=== PATIENT | male | born 1965 | race Hispanic/Latino ===

== ENCOUNTER 2018-04-07 10:33 | Emergency (ER) | payer MEDICAID, MEDICARE ==
[2018-04-07 10:42] VITALS: RESP 18; TEMP 97.5
--- NOTE | 2018-04-07 10:58 | ED PDOC ---
Arrival/HPI - General Chief Complaint: Weakness/Neurological Deficit Time Seen by Provider: 04/07/18 10:44 Historian: Patient - History of Present Illness Narrative History of Present Illness (Text): 04/07/18 10:55 A 52 year old male, with no significant past medical history, presents to the emergency department for further evaluation. Acutely yesterday, at around 5 pm the patient became dizzy and weak causing him to fall. Patient did not sustain any injury. He reports that since then, he has been experiencing trouble walking, right arm weakness, slurred speech, and facial droop. The patient is a non- smoker/ non- drinker. He denies any medication use or allergies, fevers, chills, headache, palpitations, chest pain, shortness of breath, dyspnea on exertion, cough, abdominal pain, nausea, vomiting, diarrhea, back pain, neck pain, urinary/bowel changes, or any other complaint. Time/Duration: Other (Yesterday) Symptom Onset: Sudden Symptom Course: Unchanged Activities at Onset: Rest, Light Context: Home Associated Symptoms (Text): 04/07/18 11:44 acute onset yesterday at approximately 5 PM of right upper extremity weakness difficulty walking slurred speech and a right facial droop. Patient is not a TPA candidate as his symptoms have been for approximately 19 hours. Past Medical History - Provider Review Nursing Documentation Reviewed: Yes - Psychiatric Hx Substance Use: No Family/Social History - Physician Review Nursing Documentation Reviewed: Yes Family/Social History: No Known Family HX Smoking Status: Never Smoked Hx Alcohol Use: No Hx Substance Use: No Allergies/Home Meds Allergies/Adverse Reactions: Allergies No Known Allergies Allergy (Verified 04/07/18 10:41) Home Medications: Home Meds Medication Instructions Recorded Confirmed RX: No Known Home Med 04/07/18 04/07/18 Review of Systems - Physician Review All systems were reviewed & negative as marked: Yes - Review of Systems Constitutional: absent: Fevers Respiratory: absent: SOB, Cough Cardiovascular: absent: Chest Pain, Palpitations, HEAD Gastrointestinal: absent: Abdominal Pain, Stool Changes, Diarrhea, Nausea, Vomiting Genitourinary Male: absent: Urinary Output Changes Musculoskeletal: absent: Back Pain, Neck Pain Neurological: Dizziness, Gait Changes, Speech Changes, Facial Droop Physical Exam Vital Signs Reviewed: Yes Vital Signs Temp Pulse Resp BP Pulse Ox 04/07/18 10:36 97.5 F L 85 18 206/104 H 97 Temperature: Hypothermic Blood Pressure: Hypertensive Pulse: Regular Respiratory Rate: Normal Appearance: Positive for: Well-Appearing, Non-Toxic, Comfortable Pain Distress: None Mental Status: Positive for: Alert and Oriented X 3 Finger Stick Blood Glucose: 331 - Systems Exam Head: Present: Atraumatic, Other (Right facial droop) Pupils: Present: PERRL Extroacular Muscles: Present: EOMI Conjunctiva: Present: Normal Mouth: Present: Moist Mucous Membranes Neck: Present: Normal Range of Motion Respiratory/Chest: Present: Clear to Auscultation, Good Air Exchange. No: Respiratory Distress, Accessory Muscle Use Cardiovascular: Present: Regular Rate and Rhythm, Normal S1, S2. No: Murmurs Abdomen: No: Tenderness, Distention, Peritoneal Signs Back: Present: Normal Inspection Upper Extremity: Present: Other (right upper extremity weakness. ). No: Cyanosis, Edema Lower Extremity: Present: Other (right lower extremity weakness. ). No: Edema Neurological: Present: GCS=15, CN II-XII Intact, Other (Right facial droop. ). No: Speech Normal (slurred speech) Skin: Present: Warm, Dry, Normal Color. No: Rashes Psychiatric: Present: Alert, Oriented x 3, Normal Insight, Normal Concentration Medical Decision Making ED Course and Treatment: 04/07/18 11:04 Impression: A 52 year old male presents to the emergency department for further evaluation after experiencing facial droop, difficulty walking, and right upper/ lower extremity weakness. Plan: -- Head CT -- EKG -- Chest X-ray -- Urinalysis -- Reassess and disposition Prior Visits: Notes and results from previous visits were reviewed. Progress Notes: Chest X-ray Signed By: Ventura Barros MD Date Signed: 04/07/18 1128 IMPRESSION: No active disease. PROCEDURE: CT HEAD WITHOUT CONTRAST Signed By: Ventura Barros MD Date Signed: 04/07/18 1114 IMPRESSION: There is a 9 mm hypodensity in the left thalamus that is most consistent with a subacute or chronic infarct. Acute infarct is possible and clinical correlation is suggested. There is a chronic white matter infarct in the right periventricular white matter adjacent to the frontal horns. 04/07/18 11:42 EKG shows normal sinus rhythm rate approximately [address] or T-wave changes. - Lab Interpretations I have reviewed the lab results: Yes - EKG Interpretation Interpreted by ED Physician: Yes Type: 12 lead EKG NIHSS Scale ([place]) Time Performed: 10:50 - How Severe is the Stoke Baseline Level of Consciousness: 0=Alert LOC to Questions: 0=Both comments correct LOC to commands: 0=Obeys both correctly Best Gaze: 0=Normal Visual: 0=No visual loss Facial: 1=Minor asymmetry Motor Arm - Left: 0=No drift Motor Arm - Right: 1=Drift noted before 10 sec Motor Leg - Left: 0=No drift Motor Leg - Right: 1=Drift before 5 sec Limb Ataxia: 1=Present Upper or Lower Sensory: 0=Normal Best Language: 0=No aphasia Dysarthia: 1=Mild to moderate slurring Extinction & Inattention (Neglect): 0=Normal, no object Score: 5 Risk Level: Mod Stroke Risk - Scribe Statement The provider has reviewed the documentation as recorded by the Scribe Maryan Spivey Provider Scribe Attestation: All medical record entries made by the Scribe were at my direction and personally dictated by me. I have reviewed the chart and agree that the record accurately reflects my personal performance of the history, physical exam, medical decision making, and the department course for this patient. I have also personally directed, reviewed, and agree with the discharge instructions and disposition. Disposition/Present on Arrival - Present on Arrival Any Indicators Present on Arrival: No History of DVT/PE: No History of Uncontrolled Diabetes: No Urinary Catheter: No History of Decub. Ulcer: No History Surgical Site Infection Following: None - Disposition Have Diagnosis and Disposition been Completed?: Yes Diagnosis: Cerebrovascular accident, Hypertension, Hyperglycemia, Diabetes Disposition: HOSPITALIZED Disposition Time: 11:40 Patient Plan: Admission Patient Problems: Current Active Problems Problem Status Onset Cerebrovascular accident Acute Diabetes Acute Hyperglycemia Acute Hypertension Acute Condition: SERIOUS
[2018-04-07 11:13] LABS: BASO # 0.02 K/mm3 (0.0-2.0); BASO % 0.3 % (0.0-3.0); EOS # 0.2 (0.0-0.7); GRAN # 4.74 (1.4-6.5); GRAN % 61.8 % (50.0-68.0); HEMOGLOBIN 15.3 g/dL (14.0-18.0); LYMPH # 2.3 (1.2-3.4); LYMPH % 30.2 % (22.0-35.0); MEAN CELL VOLUME 89.7 fl (80.0-105.0); MEAN CORPUSCULAR HEMOGLOBIN 30.4 pg (25.0-35.0); MEAN CORPUSCULAR HGB CONC 33.9 g/dl (31.0-37.0); MEAN PLATELET VOLUME 9.7 fl (7.0-11.0); MONO # 0.4 (0.1-0.6); MONO % 5.7 % (1.0-6.0); RBC 5.03 10^6/uL (3.5-6.1); RED CELL DISTRIBUTION WIDTH 12.3 % (11.5-14.5); WHITE BLOOD COUNT 7.7 10^3/uL (4.5-11.0)
--- NOTE | 2018-04-07 11:18 | CT ---
Date of service: 04/07/2018 PROCEDURE: CT HEAD WITHOUT CONTRAST. HISTORY: cva COMPARISON: None available. TECHNIQUE: Axial computed tomography images were obtained through the head/brain without intravenous contrast. Radiation dose: Total exam DLP = 907.35 mGy-cm. This CT exam was performed using one or more of the following dose reduction techniques: Automated exposure control, adjustment of the mA and/or kV according to patient size, and/or use of iterative reconstruction technique. FINDINGS: HEMORRHAGE: No intracranial hemorrhage. BRAIN: No mass effect or edema. There is a 9 mm hypodensity in the left thalamus that is most consistent with a subacute or chronic infarct. Acute infarct is possible and clinical correlation is suggested. This finding is seen on image 28 of series 4. There is a chronic white matter infarct in the right periventricular white matter adjacent to the frontal horns. VENTRICLES: Unremarkable. No hydrocephalus. CALVARIUM: Unremarkable. PARANASAL SINUSES: Unremarkable as visualized. No significant inflammatory changes. MASTOID AIR CELLS: Unremarkable as visualized. No inflammatory changes. OTHER FINDINGS: None. IMPRESSION: There is a 9 mm hypodensity in the left thalamus that is most consistent with a subacute or chronic infarct. Acute infarct is possible and clinical correlation is suggested. There is a chronic white matter infarct in the right periventricular white matter adjacent to the frontal horns.
[2018-04-07 11:24] LABS: INR 0.98; PARTIAL THROMBOPLASTIN TIME 27.4 Seconds (25.1-36.5); PROTHROMBIN TIME 11.3 SECONDS (9.4-12.5)
--- NOTE | 2018-04-07 11:32 | RAD ---
Date of service: 04/07/2018 HISTORY: cva COMPARISON: No prior. FINDINGS: LUNGS: No active pulmonary disease. PLEURA: No significant pleural effusion identified, no pneumothorax apparent. CARDIOVASCULAR: No aortic atherosclerotic calcification present. Normal cardiac size. No pulmonary vascular congestion. OSSEOUS STRUCTURES: No significant abnormalities. VISUALIZED UPPER ABDOMEN: Normal. OTHER FINDINGS: None. IMPRESSION: No active disease.
[2018-04-07 11:36] LABS: ALB/GLOB RATIO 1.3 (1.1-1.8); ALBUMIN 4.5 g/dL (3.0-4.8); ALT/SGPT 31 U/L (7-56); AST/SGOT 17 U/L (17-59); BLOOD UREA NITROGEN 15 mg/dL (7-21); CALCIUM 9.9 mg/dL (8.4-10.5); GFR NON-AFRICAN AMERICAN > 60
[2018-04-07 11:37] LABS: TROPONIN I < 0.01 ng/mL
[2018-04-07] MEDS ORDERED: Metoprolol 1 mg/ml Inj IVP PRN ×2 (12:11→12:19)
[2018-04-07] MEDS ORDERED: Dextrose 50% SYRINGE Inj (50 ml) IV PRN (12:14)
[2018-04-07 12:31] LABS: HDL CHOLESTEROL 41 mg/dL (29-60)
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
[2018-04-07 12:41] LABS: LDL CHOLESTEROL 136 mg/dL (0-129)
[2018-04-07 15:28] VITALS: BP 156/83; PULSE 73; O2SAT 94
[2018-04-07 15:51] VITALS: BMI 28.6
--- NOTE | 2018-04-07 16:02 | CP.PCM.DIS ---
<NaveedPooja - Last Filed: 04/07/18 15:59> Provider - Provider Date of Admission: 04/07/18 11:37 Attending physician: Tonya Macedo MD Primary care physician: NO PRIMARY CARE PROVIDER Consults: 04/07/18 12:15 Physician Consult Routine Comment: Consulting Provider: Mayuri Cheung Consulting Physician: Mayuri Cheung Reason for Consult: thalamic cva Time Spent in preparation of Discharge (in minutes): 45 Hospital Course - Lab Results Lab Results: Most Recent Lab Values WBC 7.7 10^3/uL (4.5-11.0) 04/07/18 10:45 RBC 5.03 10^6/uL (3.5-6.1) 04/07/18 10:45 Hgb 15.3 g/dL (14.0-18.0) 04/07/18 10:45 Hct 45.1 % (42.0-52.0) 04/07/18 10:45 MCV 89.7 fl (80.0-105.0) 04/07/18 10:45 MCH 30.4 pg (25.0-35.0) 04/07/18 10:45 MCHC 33.9 g/dl (31.0-37.0) 04/07/18 10:45 RDW 12.3 % (11.5-14.5) 04/07/18 10:45 Plt Count 245 10^3/uL (120.0-450.0) 04/07/18 10:45 MPV 9.7 fl (7.0-11.0) 04/07/18 10:45 Gran % 61.8 % (50.0-68.0) 04/07/18 10:45 Lymph % (Auto) 30.2 % (22.0-35.0) 04/07/18 10:45 Butts % (Auto) 5.7 % (1.0-6.0) 04/07/18 10:45 Eos % (Auto) 2.0 % (1.5-5.0) 04/07/18 10:45 Baso % (Auto) 0.3 % (0.0-3.0) 04/07/18 10:45 Gran # 4.74 (1.4-6.5) 04/07/18 10:45 Lymph # (Auto) 2.3 (1.2-3.4) 04/07/18 10:45 Butts # (Auto) 0.4 (0.1-0.6) 04/07/18 10:45 Eos # (Auto) 0.2 (0.0-0.7) 04/07/18 10:45 Baso # (Auto) 0.02 K/mm3 (0.0-2.0) 04/07/18 10:45 PT 11.3 SECONDS (9.4-12.5) 04/07/18 10:45 INR 0.98 04/07/18 10:45 APTT 27.4 Seconds (25.1-36.5) 04/07/18 10:45 Sodium 139 mmol/L (132-148) 04/07/18 10:45 Potassium 4.2 mmol/L (3.6-5.0) 04/07/18 10:45 Chloride 104 mmol/L (98-107) 04/07/18 10:45 Carbon Dioxide 24 mmol/L (21-33) 04/07/18 10:45 Anion Gap 15 (10-20) 04/07/18 10:45 BUN 15 mg/dL (7-21) 04/07/18 10:45 Creatinine 0.7 mg/dl (0.8-1.5) L 04/07/18 10:45 Est GFR ( Amer) > 60 04/07/18 10:45 Est GFR (Non-Af Amer) > 60 04/07/18 10:45 Random Glucose 312 mg/dL (70-110) H* 04/07/18 10:45 Calcium 9.9 mg/dL (8.4-10.5) 04/07/18 10:45 Phosphorus 4.0 mg/dL (2.5-4.5) 04/07/18 10:45 Magnesium 1.8 mg/dL (1.7-2.2) 04/07/18 10:45 Total Bilirubin 0.4 mg/dL (0.2-1.3) 04/07/18 10:45 AST 17 U/L (17-59) 04/07/18 10:45 ALT 31 U/L (7-56) 04/07/18 10:45 Alkaline Phosphatase 67 U/L (38-126) 04/07/18 10:45 Lactate Dehydrogenase 268 U/L (333-699) L 04/07/18 10:45 Total Creatine Kinase 40 U/L (35-230) 04/07/18 10:45 Troponin I < 0.01 ng/mL 04/07/18 10:45 Total Protein 7.8 g/dL (5.8-8.3) 04/07/18 10:45 Albumin 4.5 g/dL (3.0-4.8) 04/07/18 10:45 Globulin 3.4 gm/dL 04/07/18 10:45 Albumin/Globulin Ratio 1.3 (1.1-1.8) 04/07/18 10:45 Triglycerides 411 mg/dL (35-160) H 04/07/18 12:10 Cholesterol 243 mg/dL (130-200) H 04/07/18 12:10 LDL Cholesterol Direct 136 mg/dL (0-129) H 04/07/18 12:10 HDL Cholesterol 41 mg/dL (29-60) 04/07/18 12:10 TSH 3rd Generation 1.29 mIU/mL (0.46-4.68) 04/07/18 12:10 - Hospital Course Hospital Course: 52 M with no significant PMHx presented to the [facility] escorted by his spouse with complaints of weakness, dizziness, slurred speech and difficulty ambulating. Patient did admit to falling this morning as well as yesterday, approx 5pm when his symptoms began. He states that he was becoming increasingly weak and dizzy, but denied any trauma to the head. He notes that since that time when he fell, he has been experiencing difficulty with speech (slurred), right sided facial droop, right sided weakness, and paresthesias in his lower extremities. He states that his constellation of symptoms began suddenly and has improved minimally since then, however did note improvement. The patient denied any recent travels, sick contacts or any adverse events before the onset of his symptoms. Patient denied fever, chills, shortness of breath, chest pains, abdominal pains, nausea, vomiting, diarrhea, constipation or dysuria. Patient, while in ED and having passed the swallow evaluation had decided to leave against medical advice. Patient was explained the harms and risks of leaving against medical advice for his condition and the patient, completely competent AAOx3, he and his at bedside conferred understanding of the potentially catastrophic adverse events that may arise from not being properly evaluated and treated for his condition. Patient was offered referrals for a PMD, and a Neurologist. He was also informed that he may return to the ED if he had any symptoms or worsening of his current symptoms. He was also offered to return to [facility] for follow-up if he is unable to find a PMD during this time. Patient was made aware of discharge medications: aspirin 81mg po daily, atorvastatin 20mg PO Daily at dinner/evening time, and Glipizide 5mg PO daily and was provided a month's duration of medication, at which time he is to set up care with a PMD of his choice or the [facility] to continue with his medications. Patient and spouse both understood plan. Patient was made aware that he is currently with unsteady gait - however despite understanding his current situation, he is adamant about leaving against medical advice. Discharge Exam - Head Exam Head Exam: ATRAUMATIC, NORMAL INSPECTION, NORMOCEPHALIC - Eye Exam Eye Exam: EOMI, Normal appearance, PERRL Pupil Exam: NORMAL ACCOMODATION, PERRL - ENT Exam ENT Exam: Mucous Membranes Moist - Respiratory Exam Respiratory Exam: Clear to PA & Lateral, NORMAL BREATHING PATTERN, UNREMARKABLE - Cardiovascular Exam Cardiovascular Exam: RRR, +S1, +S2 - GI/Abdominal Exam GI & Abdominal Exam: Normal Bowel Sounds, Soft. absent: Tenderness - Extremities Exam Extremities exam: normal inspection - Neurological Exam Neurological exam: Alert, CN II-XII Intact, Oriented x3, Reflexes Normal Additional comments: unsteady gait Rt facial droop Right Upper extremity weakness 4/5, fine motor strength 3+/5 - Psychiatric Exam Psychiatric exam: Agitated - Skin Skin Exam: Dry, Intact, Normal Color, Warm Discharge Plan - Discharge Medications Prescriptions: Aspirin [Adult Low Dose Aspirin EC] 81 mg PO DAILY #30 tablet. RX: Atorvastatin Calcium 20 mg PO DIN #30 tablet RX: GlipiZIDE [Glucotrol] 5 mg PO DAILY #30 tab - Follow Up Plan Condition: SERIOUS Disposition: HOSPITALIZED Additional Instructions: 1. Pt is leaving ER against medical advise, patient was explained the harms and risks of leaving against medical advice for his condition and the patient, completely competent AAOx3, he and his at bedside conferred understanding of the potentially catastrophic adverse events that may arise from not being properly evaluated and treated for his condition. Patient was offered referrals for a PMD, and a Neurologist. He was also informed that he may return to the ED if he had any symptoms or worsening of his current symptoms. He was also offered to return to [facility] for follow-up if he is unable to find a PMD during this time. 2. Patient was made aware of discharge medications: aspirin 81mg po daily, atorvastatin 20mg PO Daily at dinner/evening time, and Glipizide 5mg PO daily and was provided a month's duration of medication, at which time he is to set up care with a PMD of his choice or the [facility] to continue with his medications. Patient and spouse both understood plan. 3. Patient was made aware that he is currently with unsteady gait - however despite understanding his current situation, he is adamant about leaving against medical advise. Referrals: Dominick Nichole DO [Staff Provider] - PCP,MICHAEL [Primary Care Provider] - Mayuri Cheung MD [Staff Provider] - <Tonya Macedo - Last Filed: 04/11/18 07:47> Provider - Provider Primary care physician: MICHAEL PRIMARY CARE PROVIDER Consults: 04/07/18 12:15 Physician Consult Routine Comment: Consulting Provider: Mayuri Cheung Consulting Physician: Mayuri Cheung Reason for Consult: thalamic cva Hospital Course - Lab Results Lab Results: Most Recent Lab Values WBC 7.7 10^3/uL (4.5-11.0) 04/07/18 10:45 RBC 5.03 10^6/uL (3.5-6.1) 04/07/18 10:45 Hgb 15.3 g/dL (14.0-18.0) 04/07/18 10:45 Hct 45.1 % (42.0-52.0) 04/07/18 10:45 MCV 89.7 fl (80.0-105.0) 04/07/18 10:45 MCH 30.4 pg (25.0-35.0) 04/07/18 10:45 MCHC 33.9 g/dl (31.0-37.0) 04/07/18 10:45 RDW 12.3 % (11.5-14.5) 04/07/18 10:45 Plt Count 245 10^3/uL (120.0-450.0) 04/07/18 10:45 MPV 9.7 fl (7.0-11.0) 04/07/18 10:45 Gran % 61.8 % (50.0-68.0) 04/07/18 10:45 Lymph % (Auto) 30.2 % (22.0-35.0) 04/07/18 10:45 Butts % (Auto) 5.7 % (1.0-6.0) 04/07/18 10:45 Eos % (Auto) 2.0 % (1.5-5.0) 04/07/18 10:45 Baso % (Auto) 0.3 % (0.0-3.0) 04/07/18 10:45 Gran # 4.74 (1.4-6.5) 04/07/18 10:45 Lymph # (Auto) 2.3 (1.2-3.4) 04/07/18 10:45 Butts # (Auto) 0.4 (0.1-0.6) 04/07/18 10:45 Eos # (Auto) 0.2 (0.0-0.7) 04/07/18 10:45 Baso # (Auto) 0.02 K/mm3 (0.0-2.0) 04/07/18 10:45 PT 11.3 SECONDS (9.4-12.5) 04/07/18 10:45 INR 0.98 04/07/18 10:45 APTT 27.4 Seconds (25.1-36.5) 04/07/18 10:45 Sodium 139 mmol/L (132-148) 04/07/18 10:45 Potassium 4.2 mmol/L (3.6-5.0) 04/07/18 10:45 Chloride 104 mmol/L (98-107) 04/07/18 10:45 Carbon Dioxide 24 mmol/L (21-33) 04/07/18 10:45 Anion Gap 15 (10-20) 04/07/18 10:45 BUN 15 mg/dL (7-21) 04/07/18 10:45 Creatinine 0.7 mg/dl (0.8-1.5) L 04/07/18 10:45 Est GFR ( Amer) > 60 04/07/18 10:45 Est GFR (Non-Af Amer) > 60 04/07/18 10:45 Random Glucose 312 mg/dL (70-110) H* 04/07/18 10:45 Hemoglobin A1c 11.1 % (4.2-6.5) H 04/07/18 12:10 Calcium 9.9 mg/dL (8.4-10.5) 04/07/18 10:45 Phosphorus 4.0 mg/dL (2.5-4.5) 04/07/18 10:45 Magnesium 1.8 mg/dL (1.7-2.2) 04/07/18 10:45 Total Bilirubin 0.4 mg/dL (0.2-1.3) 04/07/18 10:45 AST 17 U/L (17-59) 04/07/18 10:45 ALT 31 U/L (7-56) 04/07/18 10:45 Alkaline Phosphatase 67 U/L (38-126) 04/07/18 10:45 Lactate Dehydrogenase 268 U/L (333-699) L 04/07/18 10:45 Total Creatine Kinase 40 U/L (35-230) 04/07/18 10:45 Troponin I < 0.01 ng/mL 04/07/18 10:45 Total Protein 7.8 g/dL (5.8-8.3) 04/07/18 10:45 Albumin 4.5 g/dL (3.0-4.8) 04/07/18 10:45 Globulin 3.4 gm/dL 04/07/18 10:45 Albumin/Globulin Ratio 1.3 (1.1-1.8) 04/07/18 10:45 Triglycerides 411 mg/dL (35-160) H 04/07/18 12:10 Cholesterol 243 mg/dL (130-200) H 04/07/18 12:10 LDL Cholesterol Direct 136 mg/dL (0-129) H 04/07/18 12:10 HDL Cholesterol 41 mg/dL (29-60) 04/07/18 12:10 TSH 3rd Generation 1.29 mIU/mL (0.46-4.68) 04/07/18 12:10 Attending/Attestation - Attestation I have personally seen and examined this patient.: Yes I have fully participated in the care of the patient.: Yes I have reviewed all pertinent clinical information, including history, physical exam and plan: Yes Notes (Text): 04/11/18 07:42 Attending note; Patient was seen and examined with resident earlier in ED. Patient's by the bed side. Patient is a 52-year-old male with no significant PMHx presented to the [facility] escorted by his spouse with complaints of weakness, dizziness, slurred speech and difficulty ambulating. Patient did admit to falling this morning as well as yesterday. His symptoms started at 5 PM last night. He did not come to the hospital at that time. 1. Acute CVA; CT head consistent with 9 mm hypodensity in the left thalamic region consistent with subacute infarct. Patient had right-sided weakness and gait instability. Slurred speech is improving. Pending speech and swallow evaluation. Aspirin ordered. Lipid profile, echocardiogram, carotid Doppler ordered. EKG with normal sinus rhythm. Chest x-ray is normal. PT evaluation, speech and swallow evaluation requested. GI evaluation requested. 2. Hypertension; allow permissive HTN for the next 24 hours. IV metoprolol when necessary ordered. 3. Diabetes; started on regular insulin sliding scale. Hemoglobin A1c ordered. Upon discharge patient will be referred to [facility]. Addendum; Patient was evaluated by speech and swallow therapist. Started on diet. Patient signed AGAINST MEDICAL ADVICE. Discovered enlarging stroke, altered mental status, disability and explained in detail by the resident. Even though patient left AGAINST MEDICAL ADVICE prescriptions for aspirin, Lipitor, glipizide given. Advised to come back to the ER for worsening symptoms. Advised to follow-up with PMD of choice or [facility] clinic.
[2018-04-07] MEDS ORDERED: Insulin Lispro (humaLOG) LOW Coverage SC SCH (16:30)
--- NOTE | 2018-04-07 20:40 | CARD ---
APPROVED REPORT Date of service: 04/07/2018 EKG Measurement Heart [id number] <Conclusion> Normal sinus rhythm Minimal voltage criteria for LVH, may be normal variant Borderline ECG
== END 2018-04-07 11:30 | disposition left against medical advice (07) ==
LOC: ED 10:33 → ERH 11:37 → UNDOADMIN 11:37
DX: I63.9 Cerebral infarction, unspecified (principal); I10 Essential (primary) hypertension; R29.705 NIHSS score 5; E11.65 Type 2 diabetes mellitus with hyperglycemia
CPT/HCPCS: 70450; 71045; 80053; 80061; 82550; 83036; 83615; 83735; 84100; 84443; 84484; 85025; 85610; 85730; 92610; 93005; 96372; 96374; 99285; G8996; G8997; J1644

== ENCOUNTER 2018-04-09 17:42 | Inpatient (IN) | payer MEDICAID ==
[2018-04-09 17:42] VITALS: BMI 28.6
--- NOTE | 2018-04-09 17:56 | ED PDOC ---
Arrival/HPI - General Historian: Patient, Spouse - Critical Care Critical Care Minutes: 60 minutes - History of Present Illness Narrative History of Present Illness (Text): 04/09/18 18:04 52 year old male, whose past medical history includes CAD, hypertension, and diabetes, presents to the emergency department accompanied by complaining of weakness and slurryed speech s/p possible stroke earlier this afternoon. Pat ient states he is having trouble formulating words and he is experiencing weakness in his upper extremities. states he is having trouble with ambulation and notes right sided facial asymmetry. Of note, patient was seen in the emergency department on 04/07/18 for TIA and similar symptoms, and signed out AMA. Patient was noted to have a sub acute infarction seen on CT. He denies fevers, chills, headache, dizziness, chest pain, shortness of breath, dyspnea on exertion, cough, abdominal pain, nausea, vomiting, diarrhea, back pain, neck pain, or any other complaint. Time/Duration: 4-6 hours Symptom Onset: Gradual Activities at Onset: Light Context: Home <Rajan Melo - Last Filed: 04/09/18 18:51> <Lance Parson - Last Filed: 04/10/18 10:44> - General Chief Complaint: Altered Mental Status Time Seen by Provider: 04/09/18 17:50 Past Medical History - Provider Review Nursing Documentation Reviewed: Yes - Cardiac Hx Cardiac Disorders: No - Pulmonary Hx Respiratory Disorders: No - Neurological Hx Neurological Disorder: Yes (right sided weakness) - Musculoskeletal/Rheumatological Hx Falls: No - Psychiatric Hx Substance Use: No <Rajan Melo - Last Filed: 04/09/18 18:51> Family/Social History - Physician Review Nursing Documentation Reviewed: Yes Family/Social History: Unknown Family HX Smoking Status: Former Smoker Hx Alcohol Use: No Hx Substance Use: No <Rajan Melo - Last Filed: 04/09/18 18:51> Allergies/Home Meds <Rajan Melo - Last Filed: 04/09/18 18:51> <Lance Parson - Last Filed: 04/10/18 10:44> Allergies/Adverse Reactions: Allergies No Known Allergies Allergy (Verified 04/07/18 10:41) Review of Systems - Physician Review All systems were reviewed & negative as marked: Yes - Review of Systems Constitutional: absent: Fevers Respiratory: absent: SOB, Cough Cardiovascular: absent: Chest Pain Gastrointestinal: absent: Abdominal Pain, Diarrhea, Nausea Musculoskeletal: Other (upper extremity weakness). absent: Back Pain, Neck Pain Neurological: Speech Changes (slurred speech), Facial Droop <Rajan Melo - Last Filed: 04/09/18 18:51> Physical Exam Vital Signs Reviewed: Yes Temperature: Afebrile Blood Pressure: Hypertensive Pulse: Regular Respiratory Rate: Normal Appearance: Positive for: Well-Appearing, Non-Toxic, Comfortable Pain Distress: None Mental Status: Positive for: Alert and Oriented X 3 - Systems Exam Head: Present: Atraumatic, Normocephalic Pupils: Present: PERRL Conjunctiva: Present: Normal Mouth: Present: Moist Mucous Membranes Neck: Present: Normal Range of Motion Respiratory/Chest: Present: Clear to Auscultation, Good Air Exchange. No: Respi ratory Distress, Accessory Muscle Use Cardiovascular: Present: Regular Rate and Rhythm, Normal S1, S2. No: Murmurs Abdomen: No: Tenderness, Distention, Peritoneal Signs Back: Present: Normal Inspection Upper Extremity: Present: Other (right upper extremity weakness 3/5, left upper extremity weakness 5/5 ). No: Cyanosis, Edema Lower Extremity: Present: Other (right lower extremity weakness 3/5, left lower extremity weakness 5/5 ). No: Edema Neurological: Present: GCS=15, CN II-XII Intact, Normal Sensory Function, Other (right sided facial droop). No: Speech Normal (dysarthria noted), Gait Normal (gait ataxia) Skin: Present: Warm, Dry, Normal Color. No: Rashes Psychiatric: Present: Alert, Oriented x 3, Normal Insight, Normal Concentration <Rajan Melo - Last Filed: 04/09/18 18:51> Vital Signs Temp Pulse Resp BP Pulse Ox 04/09/18 19:35 81 18 141/81 98 04/09/18 18:35 85 18 165/90 H 96 04/09/18 17:42 98.1 F 82 18 173/84 H 96 <Lance Parson - Last Filed: 04/10/18 10:44> Medical Decision Making ED Course and Treatment: 04/09/18 18:01 Impression: 52 year old male who presents to the emergency department complaining of RUE weakness and slurred speech s/p possible stroke. Differential Diagnosis included but are not limited to: CVA Plan: -- MRA --MRI --Aspirin -- Head Ct w/o contrast -- Labs -- Chest X-ray -- IV fluids -- Reassess and disposition Prior Visits: Notes and results from previous visits were reviewed. Patient was last seen in the emergency department on 04/07/2018 and signed out AMA. Progress Notes: 04/09/18 18:[address] scan reveals L thalamic infarct consistent with previous documented stoke. 04/09/18 18:[address] Brian(neurology), who states patient is not a candidate for tPA due to unknown baseline and previous documented stroke. Requests MRI for head and neck, aspirin, plavix, and normal saline at 100 cc per hour to be given to patient. Call placed to Dr. Dior(hospitalist). 04/09/18 18:[address] Dior who accepts the patient onto his service. Patient unable to pass swallow screen. Rectal aspirin ordered. - Critical Care Critical Care Minutes: 60 minutes - Lab Interpretations Lab Results: 04/09/18 18:00 04/09/18 18:00 Lab Results 04/09/18 18:00: Sodium 140, Potassium 4.0, Chloride 103, Carbon Dioxide 26, Anion Gap 15, BUN 15, Creatinine 0.7 L, Est GFR ( Amer) > 60, Est GFR (Non-Af Amer) > 60, Random Glucose 266 H, Calcium 9.6, Total Bilirubin 0.5, AST 24, ALT 21, Alkaline Phosphatase 68, Troponin I < 0.01, Total Protein 8.6 H, Albumin 4.7, Globulin 3.8, Albumin/Globulin Ratio 1.2, Triglycerides 354 H, Cholesterol 249 H, LDL Cholesterol Direct 156 H, HDL Cholesterol 46 04/09/18 18:00: PT 11.8, INR 1.03, APTT 29.4 04/09/18 18:00: WBC 8.6, RBC 5.34, Hgb 16.4, Hct 47.4, MCV 88.8, MCH 30.7, MCHC 34.6, RDW 12.4, Plt Count 241, MPV 9.4, Gran % 69.9 H, Lymph % (Auto) 22.3, [place] % (Auto) 6.6 H, Eos % (Auto) 1.0 L, Baso % (Auto) 0.2, Gran # 6.00, Lymph # (Auto) 1.9, [place] # (Auto) 0.6, Eos # (Auto) 0.1, Baso # (Auto) 0.02 04/09/18 17:52: POC Glucose (mg/dL) 211 H I have reviewed the lab results: Yes - RAD Interpretation Narrative RAD Interpretations (Text): 04/09/18 18:[address] reviewed, shows: IMPRESSION: Left thalamic 9 mm hypodensity consistent with chronic infarct. Chronic white matter infarct within the right periventricular white matter adjacent to the right lateral ventricle. Mild scattered white matter hypodensities, which are nonspecific, but often seen with chronic microvascular ischemic disease. Findings discussed with Dr. Melo on 04/09/18 at 6:11 p.m. Radiology Orders: 04/09/18 17:53 HEAD W/O (CODE STROKE) [CT] Stat CHEST PORTABLE [RAD] Stat Talent Recruiter: Radiologist - Medication Orders Current Medication Orders: Sodium Chloride (Sodium Chloride 0.9%) 1,000 mls @ 100 mls/hr IV .Q10H JOSUÉ <Rajan Melo - Last Filed: 04/09/18 18:51> - Lab Interpretations Lab Results: PT 11.8 SECONDS (9.4-12.5) 04/09/18 18:00 INR 1.03 04/09/18 18:00 APTT 29.4 Seconds (25.1-36.5) 04/09/18 18:00 Troponin I < 0.01 ng/mL 04/09/18 18:00 Total Bilirubin 0.4 mg/dL (0.2-1.3) 04/10/18 08:40 AST 17 U/L (17-59) D 04/10/18 08:40 ALT 21 U/L (7-56) 04/10/18 08:40 Alkaline Phosphatase 56 U/L (38-126) 04/10/18 08:40 Total Protein 7.2 g/dL (5.8-8.3) 04/10/18 08:40 Albumin 3.9 g/dL (3.0-4.8) 04/10/18 08:40 Globulin 3.3 gm/dL 04/10/18 08:40 Albumin/Globulin Ratio 1.2 (1.1-1.8) 04/10/18 08:40 - RAD Interpretation Radiology Orders: 04/09/18 17:53 HEAD W/O (CODE STROKE) [CT] Stat CHEST PORTABLE [RAD] Stat 04/09/18 18:28 BRAIN WITHOUT CONTRAST [MRI] Stat - Medication Orders Current Medication Orders: Aspirin (Aspirin Chewable) 81 mg PO DAILY [facility] Atorvastatin Calcium (Lipitor) 80 mg PO DIN [facility] Last Admin: 04/09/18 20:12 Dose: Not Given Non-Admin Reason: NPO Clopidogrel Bisulfate (Plavix) 75 mg PO DAILY [facility] Dextrose (Dextrose 50% Inj) 0 ml IV STAT PRN; Protocol PRN Reason: Hypoglycemia Protocol Sodium Chloride (Sodium Chloride 0.9%) 1,000 mls @ 100 mls/hr IV .Q10H [facility] Last Admin: 04/10/18 01:41 Dose: 100 mls/hr eMAR Start Stop Document 04/10/18 01:41 OWUSR (Rec: 04/10/18 01:41 [id number] Intravenous Solution Start Date 04/10/18 Start Time 01:41 Dextrose (Dextrose 5% In Water 1000 Ml) 1,000 mls @ 0 mls/hr IV .Q0M PRN; Protocol PRN Reason: Hypoglycemia Protocol Insulin Human Regular (Humulin R Med) 0 units SC Q6H [facility]; Protocol Last Admin: 04/10/18 08:59 Dose: 3 units MAR Blood Glucose Document 04/10/18 08:59 LMN (Rec: 04/10/18 08:59 LMN [id number]) Blood Glucose Finger Stick Blood Glucose (70-120) 208 Subcutaneous Administrations Document 04/10/18 08:59 LMN (Rec: 04/10/18 08:59 LMN [id number]) Injection Site MAR Injection Site Right Arm Charges for Administration # of Subcutaneous Administrations 1 Discontinued Medications Aspirin (Aspirin Supp) 300 mg RC STAT STA Stop: 04/09/18 18:24 Last Admin: 04/09/18 19:13 Dose: 300 mg <Lance Parson - Last Filed: 04/10/18 10:44> NIHSS Stroke Scale 3 - Date/Time Evaluation Performed Date Performed: 04/09/18 When Was NIHSS Performed: Baseline - How Severe is the Stroke Level of Consciousness: 0=Alert LOC to Questions: 0=Both comments correct LOC to commands: 0=Obeys both correctly Best Gaze: 0=Normal Visual: 0=No visual loss Facial: 2=Partial (lower face paralysis) Motor Arm - Left: 0=No drift Motor Arm - Right: 1=Drift noted before 10 sec Motor Leg - Left: 0=No drift Motor Leg - Right: 1=Drift before 5 sec Limb Ataxia: 1=Present Upper or Lower Sensory: 0=Normal Best Language: 0=No aphasia Dysarthia: 1=Mild to moderate slurring Extinction & Inattention (Neglect): 0=Normal, no object Score: 6 <Rajan Melo - Last Filed: 04/09/18 18:51> rTPA Inclusion/Exclusion - Refusal of Treatment Patient Refused Treatment: No - Inclusion Criteria for Altepase Patient is 18 years or Older: Yes The Clinical Diagnosis of Ischemic Stroke That is Causing a Potentially Disabling Neurological Deficit: Yes Time of Onset is Well Established to be Less Than 270 Minute Before Treatment Would Begin: No Risk/Benefit Discussed With Patient/Family Member Present: Yes - Exclusion Criteria for Altepase Uncontrolled Hypertension at Time of Treatment (Systolic BP above 185 or Diastol ic BP above 110 mmHg): No <Rajan Melo - Last Filed: 04/09/18 18:51> - Scribe Statement The provider has reviewed the documentation as recorded by the Kaur Christensen Provider Scribe Attestation: All medical record entries made by the Kaur were at my direction and personally dictated by me. I have reviewed the chart and agree that the record accurately reflects my personal performance of the history, physical exam, medical decision making, and the department course for this patient. I have also personally directed, reviewed, and agree with the discharge instructions and disposition. <Rajan Melo - Last Filed: 04/09/18 18:51> Disposition/Present on Arrival - Present on Arrival History of DVT/PE: No History of Uncontrolled Diabetes: No Urinary Catheter: No History Surgical Site Infection Following: None <Rajan Melo - Last Filed: 04/09/18 18:51> <Lance Parson - Last Filed: 04/10/18 10:44> - Disposition Disposition: HOSPITALIZED
[2018-04-09 18:05] LABS: BASO # 0.02 K/mm3 (0.0-2.0); BASO % 0.2 % (0.0-3.0); EOS # 0.1 (0.0-0.7); GRAN % 69.9 % (50.0-68.0); HEMOGLOBIN 16.4 g/dL (14.0-18.0); LYMPH # 1.9 (1.2-3.4); LYMPH % 22.3 % (22.0-35.0); MEAN CELL VOLUME 88.8 fl (80.0-105.0); MEAN CORPUSCULAR HEMOGLOBIN 30.7 pg (25.0-35.0); MEAN CORPUSCULAR HGB CONC 34.6 g/dl (31.0-37.0); MEAN PLATELET VOLUME 9.4 fl (7.0-11.0); MONO # 0.6 (0.1-0.6); MONO % 6.6 % (1.0-6.0); RBC 5.34 10^6/uL (3.5-6.1); RED CELL DISTRIBUTION WIDTH 12.4 % (11.5-14.5); WHITE BLOOD COUNT 8.6 10^3/uL (4.5-11.0)
[2018-04-09 18:15] LABS: INR 1.03; PARTIAL THROMBOPLASTIN TIME 29.4 Seconds (25.1-36.5); PROTHROMBIN TIME 11.8 SECONDS (9.4-12.5)
[2018-04-09 18:17] LABS: ALB/GLOB RATIO 1.2 (1.1-1.8); ALBUMIN 4.7 g/dL (3.0-4.8); ALT/SGPT 21 U/L (7-56); AST/SGOT 24 U/L (17-59); BLOOD UREA NITROGEN 15 mg/dL (7-21); CALCIUM 9.6 mg/dL (8.4-10.5); GFR NON-AFRICAN AMERICAN > 60; HDL CHOLESTEROL 46 mg/dL (29-60)
--- NOTE | 2018-04-09 18:22 | CT ---
Date of service: 04/09/2018 PROCEDURE: CT HEAD WITHOUT CONTRAST. HISTORY: Code Stroke COMPARISON: Noncontrast head CT performed 04/07/18 TECHNIQUE: Axial computed tomography images were obtained through the head/brain without intravenous contrast. Radiation dose: Total exam DLP = 1019.56 mGy-cm. This CT exam was performed using one or more of the following dose reduction techniques: Automated exposure control, adjustment of the mA and/or kV according to patient size, and/or use of iterative reconstruction technique. FINDINGS: HEMORRHAGE: No intracranial hemorrhage. BRAIN: Diffuse atrophy with prominence of the ventricles and sulci noted. No mass effect or edema. Intracranial atherosclerosis. Left thalamic 9 mm hypodensity consistent with chronic infarct. Chronic white matter infarct within the right periventricular white matter adjacent to the right lateral ventricle. Mild scattered white matter hypodensities, which are nonspecific, but often seen with chronic microvascular ischemic disease. Please note that MRI with diffusion imaging is more sensitive in the detection of acute ischemic event. VENTRICLES: No hydrocephalus. CALVARIUM: Unremarkable. PARANASAL SINUSES: Unremarkable as visualized. No significant inflammatory changes. MASTOID AIR CELLS: Unremarkable as visualized. No inflammatory changes. OTHER FINDINGS: None. IMPRESSION: Left thalamic 9 mm hypodensity consistent with chronic infarct. Chronic white matter infarct within the right periventricular white matter adjacent to the right lateral ventricle. Mild scattered white matter hypodensities, which are nonspecific, but often seen with chronic microvascular ischemic disease. Findings discussed with Dr. Melo on 04/09/18 at 6:11 p.m.
[2018-04-09 18:47] LABS: LDL CHOLESTEROL 156 mg/dL (0-129); TROPONIN I < 0.01 ng/mL
[2018-04-09] MEDS: Sodium Chloride 0.9% 1,000 ML IV SCH (19:14)
[2018-04-09] MEDS ORDERED: Dextrose 50% SYRINGE Inj (50 ml) IV PRN ×2 (19:24→19:55)
--- NOTE | 2018-04-09 19:54 | CP.PCM.HP ---
<Eugene Worthington - Last Filed: 04/09/18 20:16> History of Present Illness - History of Present Illness History of Present Illness: Eugene Worthington PGY1 History and Physical for Dr Chery Pt is a 52 yo male with a PMH of HTN, HLD, DM,TIA who presents complaining of right sided facial droop, right UE weakness, right LE weakness and dysarthria which started Sunday at 5:30pm. Pt came to the hospital on Sunday, after his symptoms improved he signed out AMA. Pt reports that his symptoms returned today while he was at his house. Pt has had trouble speaking and forming words but has not had trouble comprehending. Pt denies loss of sensation, visual changes, seeing flashes of light, changes in taste. Pt states he feels clumsy and has trouble walking or moving his right arm. Pt does not follow with a physician and does not have regular medical care. A 12 point ROS was obtained and added to the HPI where appropriate. 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 Home meds: atorvastatin, glipazide, ASA Allergies: denies PMD: Dr Romo Present on Admission - Present on Admission Any Indicators Present on Admission: No Review of Systems - Review of Systems Review of Systems: a 12 point ROS was obtained and added to the HPI where appropriate Past Patient History - Infectious Disease Hx of Infectious Diseases: None - Past Social History Smoking Status: Former Smoker - CARDIAC Hx Cardiac Disorders: No - PULMONARY Hx Respiratory Disorders: No - NEUROLOGICAL Hx Neurological Disorder: Yes (right sided weakness) - ENDOCRINE/METABOLIC Hx Diabetes Mellitus Type 2: Yes - MUSCULOSKELETAL/RHEUMATOLOGICAL Hx Falls: No - PSYCHIATRIC Hx Substance Use: No - SURGICAL HISTORY Hx Surgeries: No Meds Allergies/Adverse Reactions: Allergies Allergy/AdvReac Type Severity Reaction Status Date / Time No Known Allergies Allergy Verified 04/07/18 10:41 Physical Exam - Head Exam Head Exam: ATRAUMATIC, NORMOCEPHALIC - Eye Exam Eye Exam: EOMI, PERRL - ENT Exam ENT Exam: Mucous Membranes Moist - Respiratory Exam Respiratory Exam: Clear to Auscultation Bilateral, NORMAL BREATHING PATTERN. absent: Accessory Muscle Use, Respiratory Distress - Cardiovascular Exam Cardiovascular Exam: RRR, +S1, +S2. absent: Diastolic murmur, Systolic Murmur - GI/Abdominal Exam GI & Abdominal Exam: Normal Bowel Sounds, Soft - Extremities Exam Extremities exam: Positive for: normal inspection. Negative for: calf tenderness Additional comments: RUE 4/5 RLE 2/5 - Neurological Exam Neurological exam: Alert, Oriented x3 Additional comments: right sided facial droop, asymmetrical smile right UE 4/5 muscle strength right LE 2/5 muscle strength no loss of sensation - Psychiatric Exam Psychiatric exam: Normal Affect, Normal Mood - Skin Skin Exam: Dry, Intact, Warm Results - Vital Signs Recent Vital Signs: Last Vital Signs Temp 98.1 F 04/09/18 17:42 Pulse 81 04/09/18 19:35 Resp 18 04/09/18 19:35 BP 141/81 04/09/18 19:35 Pulse Ox 98 04/09/18 19:35 - Labs Result Diagrams: 04/09/18 18:00 04/09/18 18:00 Labs: Laboratory Results - last 24 hr 04/09/18 04/09/18 04/09/18 17:52 18:00 18:00 WBC 8.6 RBC 5.34 Hgb 16.4 Hct 47.4 MCV 88.8 MCH 30.7 MCHC 34.6 RDW 12.4 Plt Count 241 MPV 9.4 Gran % 69.9 H Lymph % (Auto) 22.3 Sutton % (Auto) 6.6 H Eos % (Auto) 1.0 L Baso % (Auto) 0.2 Gran # 6.00 Lymph # (Auto) 1.9 Sutton # (Auto) 0.6 Eos # (Auto) 0.1 Baso # (Auto) 0.02 PT 11.8 INR 1.03 APTT 29.4 Sodium Potassium Chloride Carbon Dioxide Anion Gap BUN Creatinine Est GFR ( Amer) Est GFR (Non-Af Amer) POC Glucose (mg/dL) 211 H Random Glucose Calcium Total Bilirubin AST ALT Alkaline Phosphatase Troponin I Total Protein Albumin Globulin Albumin/Globulin Ratio Triglycerides Cholesterol LDL Cholesterol Direct HDL Cholesterol Blood Type Antibody Screen BBK History Checked 04/09/18 04/09/18 18:00 18:00 WBC RBC Hgb Hct MCV MCH MCHC RDW Plt Count MPV Gran % Lymph % (Auto) Sutton % (Auto) Eos % (Auto) Baso % (Auto) Gran # Lymph # (Auto) Sutton # (Auto) Eos # (Auto) Baso # (Auto) PT INR APTT Sodium 140 Potassium 4.0 Chloride 103 Carbon Dioxide 26 Anion Gap 15 BUN 15 Creatinine 0.7 L Est GFR ( Amer) > 60 Est GFR (Non-Af Amer) > 60 POC Glucose (mg/dL) Random Glucose 266 H Calcium 9.6 Total Bilirubin 0.5 AST 24 ALT 21 Alkaline Phosphatase 68 Troponin I < 0.01 Total Protein 8.6 H Albumin 4.7 Globulin 3.8 Albumin/Globulin Ratio 1.2 Triglycerides 354 H Cholesterol 249 H LDL Cholesterol Direct 156 H HDL Cholesterol 46 Blood Type A POSITIVE Antibody Screen Negative BBK History Checked No verified bt Assessment & Plan - Assessment and Plan (Free Text) Assessment: Pt is a 52 yo male with a PMH of HTN, HLD, DM,TIA who presents complaining of right sided facial droop, right UE weakness, right LE weakness and dysarthria which started Sunday at 5:30pm. Plan: CVA - HA1C - B12 - TSH - ASA - lipitor - plavix - neuro checks - OT, PT - [employer]IAN bedside swallow - aspiration precautions - lipid panel: trig 354, TC 249, LDL 156. HDL 46 - Head CT: diffuse atrophy, left thalamic 9mm hypodensity consistent with chronic infarct. Chronic white matter infarct within the right periventricular white matter adjacent to the right lateral ventral. mild scattered white matter hypodensities which are nonspecific but often seen with chronic microvascular ischemic disease. recommend MRI with diffuse imaging - carotid US - MRA - MRI - ECHO - Neuro Consult, Korya HTN - permissive HTN, allow BP to stay over 220/120 HLD - lipior DM - SSI - accuchecks Ppx, diet - NPO - SCD Pt seen, examined, assessment and plan discussed with Dr Vik Worthington PGY1, Internal Medicine Resident - Date & Time Date: 04/09/18 Time: 20:00 <Zelda Chery - Last Filed: 04/10/18 06:48> Results - Vital Signs Recent Vital Signs: Last Vital Signs Temp 98.1 F 04/09/18 21:05 Pulse 75 04/10/18 00:01 Resp 18 04/09/18 23:00 BP 175/102 H 04/10/18 00:01 Pulse Ox 98 04/09/18 21:05 - Labs Result Diagrams: 04/09/18 18:00 04/09/18 18:00 Labs: Laboratory Results - last 24 hr 04/09/18 04/09/18 04/09/18 17:52 18:00 18:00 WBC 8.6 RBC 5.34 Hgb 16.4 Hct 47.4 MCV 88.8 MCH 30.7 MCHC 34.6 RDW 12.4 Plt Count 241 MPV 9.4 Gran % 69.9 H Lymph % (Auto) 22.3 Sutton % (Auto) 6.6 H Eos % (Auto) 1.0 L Baso % (Auto) 0.2 Gran # 6.00 Lymph # (Auto) 1.9 Sutton # (Auto) 0.6 Eos # (Auto) 0.1 Baso # (Auto) 0.02 PT 11.8 INR 1.03 APTT 29.4 Sodium Potassium Chloride Carbon Dioxide Anion Gap BUN Creatinine Est GFR ( Amer) Est GFR (Non-Af Amer) POC Glucose (mg/dL) 211 H Random Glucose Calcium Total Bilirubin AST ALT Alkaline Phosphatase Troponin I Total Protein Albumin Globulin Albumin/Globulin Ratio Triglycerides Cholesterol LDL Cholesterol Direct HDL Cholesterol Blood Type Antibody Screen BBK History Checked 04/09/18 04/09/18 04/10/18 18:00 18:00 02:25 WBC RBC Hgb Hct MCV MCH MCHC RDW Plt Count MPV Gran % Lymph % (Auto) Sutton % (Auto) Eos % (Auto) Baso % (Auto) Gran # Lymph # (Auto) Sutton # (Auto) Eos # (Auto) Baso # (Auto) PT INR APTT Sodium 140 Potassium 4.0 Chloride 103 Carbon Dioxide 26 Anion Gap 15 BUN 15 Creatinine 0.7 L Est GFR ( Amer) > 60 Est GFR (Non-Af Amer) > 60 POC Glucose (mg/dL) 196 H Random Glucose 266 H Calcium 9.6 Total Bilirubin 0.5 AST 24 ALT 21 Alkaline Phosphatase 68 Troponin I < 0.01 Total Protein 8.6 H Albumin 4.7 Globulin 3.8 Albumin/Globulin Ratio 1.2 Triglycerides 354 H Cholesterol 249 H LDL Cholesterol Direct 156 H HDL Cholesterol 46 Blood Type A POSITIVE Antibody Screen Negative BBK History Checked No verified bt Attending/Attestation - Attestation I have personally seen and examined this patient.: Yes I have fully participated in the care of the patient.: Yes I have reviewed all pertinent clinical information: Yes
[2018-04-09] MEDS: Insulin Reg-MEDIUM-Coverage SC SCH (20:11)
[2018-04-09] MEDS ORDERED: Insulin Reg-MEDIUM-Coverage SC SCH (22:00)
[2018-04-10] MEDS: Sodium Chloride 0.9% 1,000 ML IV SCH ×3 (01:41→22:57)
[2018-04-10] MEDS: Insulin Reg-MEDIUM-Coverage SC SCH ×4 (02:27→20:52)
[2018-04-10 09:01] LABS: ALB/GLOB RATIO 1.2 (1.1-1.8); ALBUMIN 3.9 g/dL (3.0-4.8); ALT/SGPT 21 U/L (7-56); AST/SGOT 17 U/L (17-59); BLOOD UREA NITROGEN 15 mg/dL (7-21); CALCIUM 8.9 mg/dL (8.4-10.5); GFR NON-AFRICAN AMERICAN > 60
--- NOTE | 2018-04-10 09:45 | CP.PCM.CON ---
<Conner Reveles - Last Filed: 04/10/18 14:11> History of Present Illness - History of Present Illness History of Present Illness: Neurology Consultation (Dr. Brian's Service) CC: Facial Asymmetry/Extremity Weakness/Dysarthria HPI: Mr. Sanchez is a 52 year old male with a past medical history significant for HTN, HLD, and DM2 who presented with stroke like symptoms including left sided facial droop, right sided extremity weakness and dysarthria 72 hours [employer]. Patient reports that Sunday at approximately 1730 he began to experience trouble formulating words and bilateral upper extremity weakness after waking up from a nap. Patient states that after he awoke from his nap, he was trying to stand up and fell from the couch secondary to RLE weakness. Patient reports that prior to this, he had no functional deficits with his fine motor skills, speech or extremity strength. He was seen for similar symptoms at that time in the [facility] ED but signed out against medical advice at that time. After leaving the hospital, patient reports contacting a physician to establish care but was told by this physician that he should be seen in the hospital. He denies any complaints at this time and further denies any changes in her vision, headaches, neck stiffness, chest pain, SOB, abdominal pain, N/V/D/C, or any changes in urine output. In the ED, a code stroke was called and patient was sent immediately to CT for Code Stroke Protocol CT Head. He was also loaded with ASA RC and started on daily ASA and Plavix. He was deemed not to be a candidate for tPA as his timeline places him out of the window of time for tPA. His initial NIHSS score was 6. PMH: As stated above PSH: Denies Family History: Mother: in her 50's from CVA; Father: in his 60's with Epilepsy Social History: Denies any tobacco, alcohol or illicit drug use; Lives with his in [place] Allergies: NKDA Home Medications: As per MAY PMD: Dr. Cain Review of Systems - Review of Systems Review of Systems: As stated in HPI, otherwise negative Past Patient History - Infectious Disease Hx of Infectious Diseases: None - Past Social History Smoking Status: Never Smoked - CARDIAC Hx Cardiac Disorders: Yes Hx Hypercholesterolemia: Yes Hx Hypertension: Yes - PULMONARY Hx Respiratory Disorders: No - NEUROLOGICAL Hx Neurological Disorder: Yes HX Cerebrovascular Accident: Yes - HEENT Hx HEENT Problems: No - RENAL Hx Chronic Kidney Disease: No - ENDOCRINE/METABOLIC Hx Endocrine Disorders: No - HEMATOLOGICAL/ONCOLOGICAL Hx Blood Disorders: No - INTEGUMENTARY Hx Dermatological Problems: No - MUSCULOSKELETAL/RHEUMATOLOGICAL Hx Musculoskeletal Disorders: No Hx Falls: No - GASTROINTESTINAL Hx Gastrointestinal Disorders: No - GENITOURINARY/GYNECOLOGICAL Hx Genitourinary Disorders: No - PSYCHIATRIC Hx Psychophysiologic Disorder: No - SURGICAL HISTORY Hx Surgeries: No Meds Allergies/Adverse Reactions: Allergies Allergy/AdvReac Type Severity Reaction Status Date / Time No Known Allergies Allergy Verified 04/07/18 10:41 - Medications Medications: Current Medications Aspirin (Aspirin Chewable) 81 mg PO DAILY [facility] Atorvastatin Calcium (Lipitor) 80 mg PO DIN [facility] Last Admin: 04/09/18 20:12 Dose: Not Given Clopidogrel Bisulfate (Plavix) 75 mg PO DAILY [facility] Dextrose (Dextrose 50% Inj) 0 ml IV STAT PRN; Protocol PRN Reason: Hypoglycemia Protocol Sodium Chloride (Sodium Chloride 0.9%) 1,000 mls @ 100 mls/hr IV .Q10H [facility] Last Admin: 04/10/18 01:41 Dose: 100 mls/hr Dextrose (Dextrose 5% In Water 1000 Ml) 1,000 mls @ 0 mls/hr IV .Q0M PRN; Protocol PRN Reason: Hypoglycemia Protocol Insulin Human Regular (Humulin R Med) 0 units SC Q6H [facility]; Protocol Last Admin: 04/10/18 08:59 Dose: 3 units Physical Exam - Constitutional Appears: Non-toxic, No Acute Distress - Head Exam Head Exam: ATRAUMATIC, NORMOCEPHALIC - Eye Exam Eye Exam: Normal appearance, PERRL. absent: Conjunctival injection, EOMI (Difficulty with tracking motion in the upper outer right visual field), Nystag mus, Periorbital swelling, Periorbital tenderness, Scleral icterus Pupil Exam: NORMAL ACCOMODATION, PERRL. absent: Fixed, Irregular, Miosis, Mydriatic, Unequal - ENT Exam ENT Exam: Mucous Membranes Moist - Neck Exam Neck exam: Positive for: Full Rom, Normal Inspection. Negative for: Lymphadenop athy, Meningismus, Tenderness, Thyromegaly - Respiratory Exam Respiratory Exam: Clear to Auscultation Bilateral, NORMAL BREATHING PATTERN - Cardiovascular Exam Cardiovascular Exam: REGULAR RHYTHM - GI/Abdominal Exam GI & Abdominal Exam: Normal Bowel Sounds, Soft. absent: Tenderness - Extremities Exam Extremities exam: Positive for: full ROM - Back Exam Back exam: FULL ROM - Neurological Exam Neurological exam: Alert, Oriented x3 (CN II-XII not intact as patient has right sided facial asymmetry) - Expanded Neurological Exam Expanded Patient oriented to: person, place, time Speech: Slurred Speech Cranial nerves: EOM's Intact: Abnormal Right (limited in RUQ visual field), Tongue Deviation: Abnormal Right Cerebellar Function: Finger to Nose: Abnormal Right (Dymetria noted), Heel to Garcia: Normal Upper motor neuron: Babinski Sign: Abnormal Right, Pronator Drift: Normal, Sensory Extinction: Normal Sensory exam: Lower Extremity 2 Point Discrimination: Normal, Lower Extremity Li ght Touch: Normal, Upper Extremity 2 Point Discrimination: Normal, Upper Extremity Light Touch: Normal Neuro motor strength exam: Left Upper Extremity: 5, Right Upper Extremity: 3, Left Lower Extremity: 5, Right Lower Extremity: 4 Coma Scale Eye Opening: SPONTANEOUS Coma Scale Motor Response: OBEYS COMMANDS Coma Scale Verbal: Oriented Coma Scale Total: 15 - Psychiatric Exam Psychiatric exam: Normal Affect, Normal Mood - Skin Skin Exam: Dry, Intact, Normal Color, Warm Results - Vital Signs Recent Vital Signs: Last Vital Signs Temp 97.9 F 04/10/18 06:00 Pulse 73 04/10/18 06:00 Resp 19 04/10/18 06:00 BP 143/87 04/10/18 06:00 Pulse Ox 98 04/09/18 21:05 - Labs Result Diagrams: 04/09/18 18:00 04/10/18 08:40 Labs: Laboratory Results - last 24 hr 04/09/18 04/09/18 04/09/18 17:52 18:00 18:00 WBC 8.6 RBC 5.34 Hgb 16.4 Hct 47.4 MCV 88.8 MCH 30.7 MCHC 34.6 RDW 12.4 Plt Count 241 MPV 9.4 Gran % 69.9 H Lymph % (Auto) 22.3 Bledsoe % (Auto) 6.6 H Eos % (Auto) 1.0 L Baso % (Auto) 0.2 Gran # 6.00 Lymph # (Auto) 1.9 Bledsoe # (Auto) 0.6 Eos # (Auto) 0.1 Baso # (Auto) 0.02 PT 11.8 INR 1.03 APTT 29.4 Sodium Potassium Chloride Carbon Dioxide Anion Gap BUN Creatinine Est GFR ( Amer) Est GFR (Non-Af Amer) POC Glucose (mg/dL) 211 H Random Glucose Calcium Total Bilirubin AST ALT Alkaline Phosphatase Troponin I Total Protein Albumin Globulin Albumin/Globulin Ratio Triglycerides Cholesterol LDL Cholesterol Direct HDL Cholesterol TSH 3rd Generation Blood Type Blood Type Confirm Antibody Screen BBK History Checked 04/09/18 04/09/18 04/10/18 18:00 18:00 02:25 WBC RBC Hgb Hct MCV MCH MCHC RDW Plt Count MPV Gran % Lymph % (Auto) Bledsoe % (Auto) Eos % (Auto) Baso % (Auto) Gran # Lymph # (Auto) Bledsoe # (Auto) Eos # (Auto) Baso # (Auto) PT INR APTT Sodium 140 Potassium 4.0 Chloride 103 Carbon Dioxide 26 Anion Gap 15 BUN 15 Creatinine 0.7 L Est GFR ( Amer) > 60 Est GFR (Non-Af Amer) > 60 POC Glucose (mg/dL) 196 H Random Glucose 266 H Calcium 9.6 Total Bilirubin 0.5 AST 24 ALT 21 Alkaline Phosphatase 68 Troponin I < 0.01 Total Protein 8.6 H Albumin 4.7 Globulin 3.8 Albumin/Globulin Ratio 1.2 Triglycerides 354 H Cholesterol 249 H LDL Cholesterol Direct 156 H HDL Cholesterol 46 TSH 3rd Generation Blood Type A POSITIVE Blood Type Confirm Antibody Screen Negative BBK History Checked No verified bt 04/10/18 04/10/18 04/10/18 05:45 06:00 07:38 WBC RBC Hgb Hct MCV MCH MCHC RDW Plt Count MPV Gran % Lymph % (Auto) Bledsoe % (Auto) Eos % (Auto) Baso % (Auto) Gran # Lymph # (Auto) Bledsoe # (Auto) Eos # (Auto) Baso # (Auto) PT INR APTT Sodium Potassium Chloride Carbon Dioxide Anion Gap BUN Creatinine Est GFR ( Amer) Est GFR (Non-Af Amer) POC Glucose (mg/dL) 208 H Random Glucose Calcium Total Bilirubin AST ALT Alkaline Phosphatase Troponin I Total Protein Albumin Globulin Albumin/Globulin Ratio Triglycerides Cholesterol LDL Cholesterol Direct HDL Cholesterol TSH 3rd Generation 2.99 Blood Type Blood Type Confirm A POSITIVE Antibody Screen BBK History Checked 04/10/18 08:40 WBC RBC Hgb Hct MCV MCH MCHC RDW Plt Count MPV Gran % Lymph % (Auto) Bledsoe % (Auto) Eos % (Auto) Baso % (Auto) Gran # Lymph # (Auto) Bledsoe # (Auto) Eos # (Auto) Baso # (Auto) PT INR APTT Sodium 142 Potassium 3.7 Chloride 110 H Carbon Dioxide 23 Anion Gap 13 BUN 15 Creatinine 0.6 L Est GFR ( Amer) > 60 Est GFR (Non-Af Amer) > 60 POC Glucose (mg/dL) Random Glucose 189 H Calcium 8.9 Total Bilirubin 0.4 AST 17 D ALT 21 Alkaline Phosphatase 56 Troponin I Total Protein 7.2 Albumin 3.9 Globulin 3.3 Albumin/Globulin Ratio 1.2 Triglycerides Cholesterol LDL Cholesterol Direct HDL Cholesterol TSH 3rd Generation Blood Type Blood Type Confirm Antibody Screen BBK History Checked Assessment & Plan - Assessment and Plan (Free Text) Assessment: 52 year old male with a past medical history significant for HTN, HLD, DM2, and previous TIA who presented with right sided stroke like symptoms including facial droop, extremity weakness and dysarthria 72 hours [employer]. Plan: -CT Head (04/10/18) showed 9mm left thalamic chronic infarct, chronic white matter infarct within right periventricular white matter adjacent to the right lateral ventricle and scattered white matter chronic microvascular ischemic disease -CT Head from 04/07/18 reviewed and showed 9mm hypodensity in left thalamus suggestive of subacute versus chronic infarction and chronic white matter infarct in the right periventricular white matter adjacent to the frontal horns -MRI Brain, MRA Head and MRA Neck pending -Continue DAPT with Aspirin and Plavix -Continue Lipitor -Continue Lisinopril -Continue PT, OT and Speech Therapy Patient seen and case discussed with attending, Dr. Brian. Conner Reveles, PGY2 - Date & Time Date: 04/10/18 Time: 09:45 <Daniel Brian - Last Filed: 04/14/18 14:10> Results - Vital Signs Recent Vital Signs: Last Vital Signs Temp 98.7 F 04/14/18 05:51 Pulse 75 04/14/18 10:35 Resp 20 04/14/18 05:51 BP 135/88 04/14/18 10:35 Pulse Ox 94 L 04/14/18 05:51 - Labs Result Diagrams: 04/14/18 07:00 04/14/18 07:00 Labs: Laboratory Results - last 24 hr 04/13/18 04/14/18 04/14/18 21:25 07:00 07:00 WBC 12.3 H D RBC 5.12 Hgb 15.5 Hct 45.5 MCV 88.9 MCH 30.3 MCHC 34.1 RDW 12.6 Plt Count 245 MPV 9.8 Gran % 76.4 H Lymph % (Auto) 14.4 L Bledsoe % (Auto) 7.9 H Eos % (Auto) 1.1 L Baso % (Auto) 0.2 Gran # 9.42 H Lymph # (Auto) 1.8 Bledsoe # (Auto) 1.0 H Eos # (Auto) 0.1 Baso # (Auto) 0.03 Sodium 139 Potassium 3.8 Chloride 107 Carbon Dioxide 20 L Anion Gap 15 BUN 17 Creatinine 0.7 L Est GFR ( Amer) > 60 Est GFR (Non-Af Amer) > 60 POC Glucose (mg/dL) 96 Random Glucose 146 H Calcium 9.2 Total Bilirubin 0.6 AST 32 ALT 28 Alkaline Phosphatase 60 Total Protein 8.1 Albumin 4.4 Globulin 3.7 Albumin/Globulin Ratio 1.2 04/14/18 07:57 WBC RBC Hgb Hct MCV MCH MCHC RDW Plt Count MPV Gran % Lymph % (Auto) Bledsoe % (Auto) Eos % (Auto) Baso % (Auto) Gran # Lymph # (Auto) Bledsoe # (Auto) Eos # (Auto) Baso # (Auto) Sodium Potassium Chloride Carbon Dioxide Anion Gap BUN Creatinine Est GFR ( Amer) Est GFR (Non-Af Amer) POC Glucose (mg/dL) 152 H Random Glucose Calcium Total Bilirubin AST ALT Alkaline Phosphatase Total Protein Albumin Globulin Albumin/Globulin Ratio Attending/Attestation - Attestation I have personally seen and examined this patient.: Yes I have fully participated in the care of the patient.: Yes I have reviewed all pertinent clinical information: Yes Notes (Text): I agree with the assessment and plan: -MRI Brain, MRA Head and MRA Neck pending -Continue DAPT with Aspirin and Plavix -Continue Lipitor -Continue Lisinopril -Continue PT, OT and Speech Therapy
--- NOTE | 2018-04-10 11:50 | RAD ---
HISTORY: Code Stroke COMPARISON: Chest x-ray performed 04/07/18 TECHNIQUE: Chest, one view. FINDINGS: LUNGS: No focal consolidation. Please note that chest x-ray has limited sensitivity for the detection of pulmonary masses. PLEURA: No significant pleural effusion identified. No definite pneumothorax . CARDIOVASCULAR: Stable appearance of the cardiomediastinal silhouette. Heart size appears top normal. Prominence of the mediastinum likely related to aortic ectasia. OSSEOUS STRUCTURES: Degenerative changes. VISUALIZED UPPER ABDOMEN: Unremarkable. OTHER FINDINGS: None. IMPRESSION: No focal consolidation. Additional findings as above.
--- NOTE | 2018-04-10 14:48 | CP.PCM.PN ---
<Eugene Worthington - Last Filed: 04/10/18 15:49> Subjective - Date & Time of Evaluation Date of Evaluation: 04/10/18 Time of Evaluation: 09:00 - Subjective Subjective: Pt seen and examined this morning. Pt states right sided weakness is about the same as yesterday and has not greatly changed. Denies chest pain, SOB, or visual changes. Objective - Vital Signs/Intake and Output Vital Signs (last 24 hours): Temp Pulse Resp BP Pulse Ox 98.6 F 80 20 175/105 H 98 04/10/18 12:00 04/10/18 12:00 04/10/18 12:00 04/10/18 12:00 04/09/18 21:05 Intake and Output: 04/10/18 04/10/18 06:59 18:59 Intake Total 1000 Balance 1000 - Medications Medications: Current Medications Aspirin (Aspirin Chewable) 81 mg PO DAILY [facility] Last Admin: 04/10/18 10:52 Dose: 81 mg Atorvastatin Calcium (Lipitor) 80 mg PO DIN [facility] Last Admin: 04/09/18 20:12 Dose: Not Given Clopidogrel Bisulfate (Plavix) 75 mg PO DAILY [facility] Last Admin: 04/10/18 10:52 Dose: 75 mg Dextrose (Dextrose 50% Inj) 0 ml IV STAT PRN; Protocol PRN Reason: Hypoglycemia Protocol Sodium Chloride (Sodium Chloride 0.9%) 1,000 mls @ 100 mls/hr IV .Q10H [facility] Last Admin: 04/10/18 01:41 Dose: 100 mls/hr Dextrose (Dextrose 5% In Water 1000 Ml) 1,000 mls @ 0 mls/hr IV .Q0M PRN; Protocol PRN Reason: Hypoglycemia Protocol Insulin Human Regular (Humulin R Med) 0 units SC Q6H [facility]; Protocol Last Admin: 04/10/18 08:59 Dose: 3 units Lisinopril (Zestril) 5 mg PO DAILY [facility] Last Admin: 04/10/18 11:32 Dose: 5 mg - Labs Labs: 04/09/18 18:00 04/10/18 08:40 PT 11.8 SECONDS (9.4-12.5) 04/09/18 18:00 INR 1.03 04/09/18 18:00 APTT 29.4 Seconds (25.1-36.5) 04/09/18 18:00 - Constitutional Appears: No Acute Distress - Head Exam Additional comments: right sided facial droop - Eye Exam Eye Exam: EOMI - ENT Exam ENT Exam: Mucous Membranes Moist - Neck Exam Neck Exam: Full ROM - Respiratory Exam Respiratory Exam: Clear to Ausculation Bilateral, NORMAL BREATHING PATTERN. absent: Accessory Muscle Use, Respiratory Distress - Cardiovascular Exam Cardiovascular Exam: RRR, +S1, +S2. absent: Diastolic murmur, Murmur - GI/Abdominal Exam GI & Abdominal Exam: Soft, Normal Bowel Sounds - Extremities Exam Extremities Exam: absent: Calf Tenderness, Pedal Edema Additional comments: right UE 4/5 muscle strength right LE 3/5 muscle strength - Neurological Exam Neurological Exam: Alert, Awake, Oriented x3 Neuro motor strength exam: Left Upper Extremity: 5, Right Upper Extremity: 4, Left Lower Extremity: 5, Right Lower Extremity: 3 - Psychiatric Exam Psychiatric exam: Normal Affect, Normal Mood - Skin Skin Exam: Dry, Intact, Warm Assessment and Plan - Assessment and Plan (Free Text) Assessment: Pt is a 52 yo male with a PMH of HTN, HLD, DM,TIA who presents complaining of ri ght sided facial droop, right UE weakness, right LE weakness and dysarthria which started Sunday at 5:30pm. Plan: CVA - HA1C 11.1, B12 251, TSH 2.99 - ASA 81mg, lipitor 80mg with dinner, plavix 75mg PO - OT follow up, PT follow up - UNIVERSITY RELATIONS DIRECTOR bedside swallow, passed - continue neuro checks - aspiration precautions - lipid panel: trig 354, TC 249, LDL 156. HDL 46 - Head CT: diffuse atrophy, left thalamic 9mm hypodensity consistent with chronic infarct. Chronic white matter infarct within the right periventricular white matter adjacent to the right lateral ventral. mild scattered white matter hypodensities which are nonspecific but often seen with chronic microvascular ischemic disease. - carotid US: follow up - MRA head: shows no evidence of occlusion - MRI brain: there is a 10mm acute infarct in the left thalamus - ECHO: follow up - Neuro Consult, Korya rec continue DAPT with Aspirin and Plavix, Lipitor, Lisinopril, PT, OT and Speech Therapy HTN - start lisinopril 5mg, may adjust dose accordingly - continue to monitor HLD - lipior 80mg with dinner DM - SSI - accuchecks Ppx, diet - NPO - SCD Pt seen, examined, assessment and plan discussed with Dr Barby Worthington PGY1 <Tal Dior - Last Filed: 04/13/18 00:15> Objective - Vital Signs/Intake and Output Vital Signs (last 24 hours): Temp Pulse Resp BP Pulse Ox 97.8 F 85 19 148/91 H 100 04/12/18 17:48 04/12/18 18:00 04/12/18 17:48 04/12/18 17:48 04/11/18 06:00 Intake and Output: 04/12/18 04/13/18 18:59 06:59 Intake Total 1260 Output Total 1825 Balance -565 - Medications Medications: Current Medications Amlodipine Besylate (Norvasc) 5 mg PO DAILY [facility] Aspirin (Aspirin Chewable) 81 mg PO DAILY [facility] Last Admin: 04/12/18 09:21 Dose: 81 mg Atorvastatin Calcium (Lipitor) 80 mg PO DIN [facility] Last Admin: 04/12/18 18:20 Dose: 80 mg Clopidogrel Bisulfate (Plavix) 75 mg PO DAILY [facility] Last Admin: 04/12/18 09:22 Dose: 75 mg Dextrose (Dextrose 50% Inj) 0 ml IV STAT PRN; Protocol PRN Reason: Hypoglycemia Protocol Glipizide (Glucotrol) 5 mg PO DAILY [facility] Last Admin: 04/12/18 09:21 Dose: 5 mg Dextrose (Dextrose 5% In Water 1000 Ml) 1,000 mls @ 0 mls/hr IV .Q0M PRN; Protocol PRN Reason: Hypoglycemia Protocol Insulin Human Regular (Humulin R Med) 0 units SC [facility]; Protocol Last Admin: 04/12/18 22:57 Dose: Not Given Lisinopril (Zestril) 10 mg PO DAILY [facility] - Labs Labs: 04/12/18 06:00 04/12/18 06:00 PT 11.8 SECONDS (9.4-12.5) 04/09/18 18:00 INR 1.03 04/09/18 18:00 APTT 29.4 Seconds (25.1-36.5) 04/09/18 18:00 Attending/Attestation - Attestation I have personally seen and examined this patient.: Yes I have fully participated in the care of the patient.: Yes I have reviewed all pertinent clinical information, including history, physical exam and plan: Yes Notes (Text): 52 y/o M with PMH of HTN, recent TIA, presented with right facial droop and right sided weakness. CT head showed left thalamic infarct. MRI brain showed an acute thalamic infarct Neuro on board c/w ASA and statin Start Lisinopril 5mg and adjust dose as needed PT/OT/Speech
--- NOTE | 2018-04-10 15:01 | MRI ---
Date of service: 04/10/2018 PROCEDURE: MRI BRAIN WITHOUT CONTRAST HISTORY: stroke COMPARISON: None available. TECHNIQUE: Multiplanar, multisequence MR images of the brain were obtained without intravenous contrast enhancement. FINDINGS: HEMORRHAGE: None DWI: There is a 10 mm acute infarct in the left thalamus BRAIN PARENCHYMA: No mass effect or edema. No atrophy or chronic microvascular ischemic changes. VENTRICLES: Unremarkable. No hydrocephalus. CRANIUM: Unremarkable. ORBITS: Grossly unremarkable. PARANASAL SINUSES/MASTOIDS: Clear VASCULAR SYSTEM: Skull base flow voids intact. OTHER FINDINGS: None. IMPRESSION: There is a 10 mm acute infarct in the left thalamus
--- NOTE | 2018-04-10 15:04 | MRI ---
Date of service: 04/10/2018 PROCEDURE: Magnetic Resonance Angiography Brain HISTORY: s/p L thalamic stroke COMPARISON: None available. TECHNIQUE: 3D time of flight MR angiography of the intracranial arteries was performed. Rotating maximum intensity projection images were generated. There was some motion artifact on the study. FINDINGS: INTERNAL CAROTID ARTERIES: Unremarkable. The skull base, petrous, cavernous and supraclinoid segments are bilaterally widely patient. ANTERIOR CEREBRAL ARTERIES: Unremarkable. A1 and A2 segments are widely patent. Smaller distal branches unremarkable, as visualized. MIDDLE CEREBRAL ARTERIES: Unremarkable. M1 and M2 segments are widely patent. Perisylvian branches grossly symmetric. POSTERIOR CIRCULATION: Basilar Artery: Unremarkable. Distal Vertebral Arteries: Unremarkable. Posterior Cerebral Arteries: Unremarkable. Posterior Inferior Cerebellar Arteries: Unremarkable. ANEURYSM/ VASCULAR MALFORMATIONS: None. OTHER FINDINGS: None. IMPRESSION: Motion artifact on the study degrade some of the images. No evidence of occlusion.
--- NOTE | 2018-04-10 18:27 | CARD ---
APPROVED REPORT Date of service: 04/09/2018 EKG Measurement Heart [id number] <Conclusion> Normal sinus rhythm Normal ECG
[2018-04-11] MEDS: Sodium Chloride 0.9% 1,000 ML IV SCH (06:24)
[2018-04-11 06:45] LABS: BASO # 0.02 K/mm3 (0.0-2.0); BASO % 0.3 % (0.0-3.0); EOS # 0.2 (0.0-0.7); EOS % 2.1 % (1.5-5.0); GRAN # 4.6 (1.4-6.5); GRAN % 60.3 % (50.0-68.0); LYMPH # 2.4 (1.2-3.4); MEAN CELL VOLUME 88.8 fl (80.0-105.0); MEAN CORPUSCULAR HGB CONC 33.8 g/dl (31.0-37.0); MEAN PLATELET VOLUME 9.6 fl (7.0-11.0); MONO # 0.5 (0.1-0.6); MONO % 6.3 % (1.0-6.0); RBC 4.66 10^6/uL (3.5-6.1); RED CELL DISTRIBUTION WIDTH 12.5 % (11.5-14.5); WHITE BLOOD COUNT 7.6 10^3/uL (4.5-11.0)
[2018-04-11 07:03] LABS: ALB/GLOB RATIO 1.1 (1.1-1.8); ALBUMIN 3.8 g/dL (3.0-4.8); ALT/SGPT 28 U/L (7-56); AST/SGOT 21 U/L (17-59); BLOOD UREA NITROGEN 16 mg/dL (7-21); CALCIUM 8.9 mg/dL (8.4-10.5); GFR NON-AFRICAN AMERICAN > 60
[2018-04-11] MEDS: Insulin Reg-MEDIUM-Coverage SC SCH ×4 (09:00→22:09)
--- NOTE | 2018-04-11 15:28 | CP.PCM.PN ---
<Conner Reveles - Last Filed: 04/11/18 15:40> Subjective - Date & Time of Evaluation Date of Evaluation: 04/11/18 Time of Evaluation: 15:26 - Subjective Subjective: Neurology Progress Note Patient seen and assessed at bedside. Patient was noted to have difficulty urinating overnight. Patient states to our team that this was due to his inability to urinate in urinal with people watching him. A paulson catheter was placed later on as his bladder scan revealed approximately one liter of urine. Patient has no complaints at this time and 12 point ROS is unremarkable. Objective - Vital Signs/Intake and Output Vital Signs (last 24 hours): Temp Pulse Resp BP Pulse Ox 97.6 F 74 20 155/93 H 100 04/11/18 12:00 04/11/18 12:00 04/11/18 12:00 04/11/18 12:00 04/11/18 06:00 Intake and Output: 04/11/18 04/11/18 06:59 18:59 Intake Total 1920 Output Total 600 Balance 1320 - Medications Medications: Current Medications Aspirin (Aspirin Chewable) 81 mg PO DAILY [facility] Last Admin: 04/11/18 09:44 Dose: 81 mg Atorvastatin Calcium (Lipitor) 80 mg PO DIN [facility] Last Admin: 04/10/18 17:36 Dose: 80 mg Clopidogrel Bisulfate (Plavix) 75 mg PO DAILY [facility] Last Admin: 04/11/18 09:44 Dose: 75 mg Dextrose (Dextrose 50% Inj) 0 ml IV STAT PRN; Protocol PRN Reason: Hypoglycemia Protocol Dextrose (Dextrose 5% In Water 1000 Ml) 1,000 mls @ 0 mls/hr IV .Q0M PRN; Pr otocol PRN Reason: Hypoglycemia Protocol Insulin Human Regular (Humulin R Med) 0 units SC ACHS [facility]; Protocol Last Admin: 04/11/18 12:35 Dose: 3 u Lisinopril (Zestril) 5 mg PO DAILY [facility] Last Admin: 04/11/18 09:46 Dose: 5 mg - Labs Labs: 04/11/18 06:00 04/11/18 06:00 PT 11.8 SECONDS (9.4-12.5) 04/09/18 18:00 INR 1.03 04/09/18 18:00 APTT 29.4 Seconds (25.1-36.5) 04/09/18 18:00 - Constitutional Appears: Non-toxic, No Acute Distress - Head Exam Head Exam: ATRAUMATIC, NORMOCEPHALIC - Eye Exam Eye Exam: EOMI, Normal appearance, PERRL. absent: Conjunctival injection, Nystagmus, Periorbital swelling, Periorbital tenderness, Scleral icterus Pupil Exam: NORMAL ACCOMODATION, PERRL - ENT Exam ENT Exam: Mucous Membranes Moist - Neck Exam Neck Exam: Full ROM - Respiratory Exam Respiratory Exam: NORMAL BREATHING PATTERN - Cardiovascular Exam Cardiovascular Exam: REGULAR RHYTHM - GI/Abdominal Exam GI & Abdominal Exam: Soft, Normal Bowel Sounds. absent: Tenderness - Neurological Exam Neurological Exam: Alert, Awake, CN II-XII Intact, Oriented x3 Additional comments: Patient oriented to: person, place, time Cranial nerves: EOM's Intact: Normal, Tongue Deviation: Normal Cerebellar Function: Finger to Nose: Abnormal Right (Dysmetria noted; Interval improvement noted), Heel to Garcia: Normal Upper motor neuron: Pronator Drift: Normal Sensory exam: Lower Extremity 2 Point Discrimination: Normal, Lower Extremity Light Touch: Normal, Upper Extremity 2 Point Discrimination: Normal, Upper Extremity Light Touch: Normal Neuro motor strength exam: Left Upper Extremity: 5, Right Upper Extremity: 3, Le ft Lower Extremity: 5, Right Lower Extremity: 4 Coma Scale Eye Opening: SPONTANEOUS Coma Scale Motor Response: OBEYS COMMANDS Coma Scale Verbal: Oriented Coma Scale Total: 15 - Psychiatric Exam Psychiatric exam: Normal Affect, Normal Mood - Skin Skin Exam: Dry, Intact, Normal Color, Warm Assessment and Plan - Assessment and Plan (Free Text) Assessment: 52 year old male with a past medical history significant for HTN, HLD, DM2, and previous TIA who presented with right sided stroke like symptoms including facial droop, extremity weakness and dysarthria 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 Plan: -MRI Brain showed 10mm acute infarct in the left thalamus -MRA Head was limited in its utility but showed no gross vascular abnormalities -CT Head (04/10/18) showed 9mm left thalamic chronic infarct, chronic white matter infarct within right periventricular white matter adjacent to the right lateral ventricle and scattered white matter chronic microvascular ischemic disease -CT Head from 04/07/18 reviewed and showed 9mm hypodensity in left thalamus suggestive of subacute versus chronic infarction and chronic white matter infarct in the right periventricular white matter adjacent to the frontal horns -MRA Neck refused due to -Continue DAPT with Aspirin and Plavix for 21 days and then just Plavix (Should patient refuse continuation of Plavix, daily low dose ASA monotherapy would be acceptable) -Continue Lipitor -Continue Lisinopril -Continue PT, OT and Speech Therapy -Voiding trial in order to remove paulson catheter Disposition: Should patient be placed at [facility], Dr. Brian can follow up with him while in rehab. Should he not, patient can follow up with Dr. Brian in his office within two weeks of being discharged from rehab. Patient seen and case discussed with attending, Dr. Brian. Conner Reveles, PGY2 <Daniel Brian - Last Filed: 04/14/18 14:03> Objective - Vital Signs/Intake and Output Vital Signs (last 24 hours): Temp Pulse Resp BP Pulse Ox 98.7 F 75 20 135/88 94 L 04/14/18 05:51 04/14/18 10:35 04/14/18 05:51 04/14/18 10:35 04/14/18 05:51 Intake and Output: 04/14/18 04/14/18 06:59 18:59 Intake Total 480 Output Total 500 Balance -20 - Labs Labs: 04/14/18 07:00 04/14/18 07:00 PT 11.8 SECONDS (9.4-12.5) 04/09/18 18:00 INR 1.03 04/09/18 18:00 APTT 29.4 Seconds (25.1-36.5) 04/09/18 18:00 Attending/Attestation - Attestation I have personally seen and examined this patient.: Yes I have fully participated in the care of the patient.: Yes I have reviewed all pertinent clinical information, including history, physical exam and plan: Yes Notes (Text): I agree with the assessment and plan. Continue secondary stroke prevention. Will follow as an outpatient.
--- NOTE | 2018-04-11 16:10 | CP.PCM.PN ---
<AnderEugene Jerry - Last Filed: 04/11/18 16:21> Subjective - Date & Time of Evaluation Date of Evaluation: 04/11/18 Time of Evaluation: 07:35 - Subjective Subjective: Pt seen and examined. Pt has right sided weakness, no new complaints at this time. Objective - Vital Signs/Intake and Output Vital Signs (last 24 hours): Temp Pulse Resp BP Pulse Ox 97.6 F 74 20 155/93 H 100 04/11/18 12:00 04/11/18 12:00 04/11/18 12:00 04/11/18 12:00 04/11/18 06:00 Intake and Output: 04/11/18 04/11/18 06:59 18:59 Intake Total 1920 Output Total 600 Balance 1320 - Medications Medications: Current Medications Aspirin (Aspirin Chewable) 81 mg PO DAILY [facility] Last Admin: 04/11/18 09:44 Dose: 81 mg Atorvastatin Calcium (Lipitor) 80 mg PO DIN [facility] Last Admin: 04/10/18 17:36 Dose: 80 mg Clopidogrel Bisulfate (Plavix) 75 mg PO DAILY [facility] Last Admin: 04/11/18 09:44 Dose: 75 mg Dextrose (Dextrose 50% Inj) 0 ml IV STAT PRN; Protocol PRN Reason: Hypoglycemia Protocol Dextrose (Dextrose 5% In Water 1000 Ml) 1,000 mls @ 0 mls/hr IV .Q0M PRN; Protocol PRN Reason: Hypoglycemia Protocol Insulin Human Regular (Humulin R Med) 0 units SC ACHS [facility]; Protocol Last Admin: 04/11/18 12:35 Dose: 3 u Lisinopril (Zestril) 5 mg PO DAILY [facility] Last Admin: 04/11/18 09:46 Dose: 5 mg - Labs Labs: 04/11/18 06:00 04/11/18 06:00 PT 11.8 SECONDS (9.4-12.5) 04/09/18 18:00 INR 1.03 04/09/18 18:00 APTT 29.4 Seconds (25.1-36.5) 04/09/18 18:00 - Constitutional Appears: No Acute Distress - Head Exam Head Exam: ATRAUMATIC, NORMOCEPHALIC - Eye Exam Eye Exam: EOMI - ENT Exam ENT Exam: Mucous Membranes Moist - Neck Exam Neck Exam: Full ROM - Respiratory Exam Respiratory Exam: Clear to Ausculation Bilateral, NORMAL BREATHING PATTERN. absent: Accessory Muscle Use, Respiratory Distress - Cardiovascular Exam Cardiovascular Exam: RRR, +S1, +S2 - GI/Abdominal Exam GI & Abdominal Exam: Soft, Normal Bowel Sounds - Extremities Exam Extremities Exam: absent: Calf Tenderness, Pedal Edema Additional comments: RUE 4/5 muscle strength RLE 3/5 muscle strength - Neurological Exam Neurological Exam: Alert, Awake, Oriented x3 Neuro motor strength exam: Left Upper Extremity: 5, Right Upper Extremity: 4, Left Lower Extremity: 5, Right Lower Extremity: 3 - Skin Skin Exam: Dry, Intact, Warm Assessment and Plan - Assessment and Plan (Free Text) Assessment: Pt is a 52 yo male with a PMH of HTN, HLD, DM,TIA who presents complaining of right sided facial droop, right UE weakness, right LE weakness and dysarthria which started Sunday at 5:30pm. Plan: CVA - HA1C 11.1, B12 251, TSH 2.99 - ASA 81mg, lipitor 80mg with dinner, plavix 75mg PO - lipid panel: trig 354, TC 249, LDL 156. HDL 46 - PT: improvemtn with skilled PT, still exhibits dynamic balance impairment, weakness of Right side of facial muscles and reduced trunk control. Pt will benefit from continued skilled PT to restore his PLOF. Continue PT, Acute rehab - PROCESS IMPROVEMENT ANALYST bedside swallow, passed - continue neuro checks, aspiration precautions - Head CT: diffuse atrophy, left thalamic 9mm hypodensity consistent with chronic infarct. Chronic white matter infarct within the right periventricular white matter adjacent to the right lateral ventral. mild scattered white matter hypodensities which are nonspecific but often seen with chronic microvascular ischemic disease. - MRA head: shows no evidence of occlusion - MRI brain: there is a 10mm acute infarct in the left thalamus - ECHO and carotid US: follow up - Neuro Consult, Snehal randolph continue DAPT with Aspirin and Plavix, Lipitor, Lisinopril, PT, OT and Speech Therapy, Pt should be placed at [facility]. Dr Brian can follow up with him while in rehab. Pt should follow up with Dr Brian within 2 weeks after being discharged from rehab. HLD - lipior 80mg with dinner - continue current management HTN - start lisinopril 5mg, may adjust dose accordingly - continue to monitor DM - SSI - accuchecks Ppx, diet - NPO - SCD Pt seen, examined, assessment and plan discussed with Dr Remington Worthington PGY1, Internal Medicine Resident <Tonya Macedo - Last Filed: 04/12/18 07:53> Objective - Vital Signs/Intake and Output Vital Signs (last 24 hours): Temp Pulse Resp BP Pulse Ox 97.6 F 68 20 128/80 100 04/12/18 06:00 04/12/18 06:00 04/12/18 06:00 04/12/18 06:00 04/11/18 06:00 Intake and Output: 04/12/18 04/12/18 06:59 18:59 Intake Total 240 Output Total 350 Balance -110 - Medications Medications: Current Medications Aspirin (Aspirin Chewable) 81 mg PO DAILY [facility] Last Admin: 04/11/18 09:44 Dose: 81 mg Atorvastatin Calcium (Lipitor) 80 mg PO DIN [facility] Last Admin: 04/11/18 17:47 Dose: 80 mg Clopidogrel Bisulfate (Plavix) 75 mg PO DAILY [facility] Last Admin: 04/11/18 09:44 Dose: 75 mg Dextrose (Dextrose 50% Inj) 0 ml IV STAT PRN; Protocol PRN Reason: Hypoglycemia Protocol Dextrose (Dextrose 5% In Water 1000 Ml) 1,000 mls @ 0 mls/hr IV .Q0M PRN; Protocol PRN Reason: Hypoglycemia Protocol Insulin Human Regular (Humulin R Med) 0 units SC ACHS [facility]; Protocol Last Admin: 04/11/18 22:09 Dose: Not Given Lisinopril (Zestril) 5 mg PO DAILY [facility] Last Admin: 04/11/18 09:46 Dose: 5 mg - Labs Labs: 04/12/18 06:00 04/12/18 06:00 PT 11.8 SECONDS (9.4-12.5) 04/09/18 18:00 INR 1.03 04/09/18 18:00 APTT 29.4 Seconds (25.1-36.5) 04/09/18 18:00 Attending/Attestation - Attestation I have personally seen and examined this patient.: Yes I have fully participated in the care of the patient.: Yes I have reviewed all pertinent clinical information, including history, physical exam and plan: Yes Notes (Text): 04/12/18 07:36 Attending note; Patient seen and examined with resident. Patient is alert and awake. complaining of right sided weakness. had urinary retention last night. Henry catheter placed. Denies any abdominal pain. Patient's by the bedside. Patient is a 52-year-old male with no significant PMHx presented to [place] [facility] escorted by his spouse with complaints of weakness, dizziness, slurred speech and difficulty ambulating. Patient did admit to falling this morning as well as yesterday. His symptoms started at 5 PM last night. He did not come to the hospital at that time. 1. Acute CVA; CT head consistent with 9 mm hypodensity in the left thalamic region consistent with subacute infarct. Patient had right-sided weakness and gait instability. MRA head: shows no evidence of occlusion MRI brain: there is a 10mm acute infarct in the left thalamus. Continue aspirin, Plavix and Lipitor. EKG with normal sinus rhythm. Chest x-ray is normal. PT evaluation, speech and swallow evaluation appreciated. Acute rehabilitation recommended. 2. Hypertension; continue lisinopril. 3. Diabetes; hemoglobin A1c is 11.1. Dietary education given. Started on glipizide low-dose. Started on carb consistent diet/ dysphagia diet. Upon discharge the patient will follow-up with PMD Dr. Montague. Case discussed with patient case manager for acute rehabilitation placement. Pending placement. The diagnosis, follow-up plan discussed with patient and patient's in detail.
[2018-04-12 06:42] LABS: BASO # 0.02 K/mm3 (0.0-2.0); BASO % 0.3 % (0.0-3.0); EOS # 0.2 (0.0-0.7); EOS % 2.5 % (1.5-5.0); GRAN # 4.02 (1.4-6.5); GRAN % 54.7 % (50.0-68.0); HEMOGLOBIN 13.5 g/dL (14.0-18.0); LYMPH # 2.6 (1.2-3.4); LYMPH % 35.1 % (22.0-35.0); MEAN CORPUSCULAR HEMOGLOBIN 29.8 pg (25.0-35.0); MEAN CORPUSCULAR HGB CONC 33.5 g/dl (31.0-37.0); MEAN PLATELET VOLUME 9.7 fl (7.0-11.0); MONO # 0.5 (0.1-0.6); MONO % 7.4 % (1.0-6.0); RBC 4.53 10^6/uL (3.5-6.1); RED CELL DISTRIBUTION WIDTH 12.6 % (11.5-14.5); WHITE BLOOD COUNT 7.3 10^3/uL (4.5-11.0)
[2018-04-12 07:08] LABS: ALB/GLOB RATIO 1.2 (1.1-1.8); ALBUMIN 3.7 g/dL (3.0-4.8); ALT/SGPT 23 U/L (7-56); AST/SGOT 17 U/L (17-59); BLOOD UREA NITROGEN 15 mg/dL (7-21); CALCIUM 8.6 mg/dL (8.4-10.5); GFR NON-AFRICAN AMERICAN > 60
[2018-04-12] MEDS: Insulin Reg-MEDIUM-Coverage SC SCH ×4 (09:20→22:57)
--- NOTE | 2018-04-12 10:22 | US ---
PROCEDURE: Bilateral carotid artery duplex ultrasound HISTORY: Carotid stenosis CVA PHYSICIAN(S): Hadley Trivedi MD. TECHNIQUE: Duplex sonography and color-flow Doppler were used to evaluate the carotid bifurcations and limited segments of the vertebral arteries bilaterally. FINDINGS: There is mild smooth heterogeneous plaque noted at the carotid bifurcations bilaterally. The peak systolic velocity in the proximal right internal carotid artery is 91 cm/sec. This corresponds to a 20 to 39% proximal right ICA stenosis. Normal systolic velocities are noted in the proximal right external carotid artery. There is antegrade flow in the right vertebral artery. The peak systolic velocity in the proximal left internal carotid artery is 85 cm/sec. This corresponds to a 20 to 39% proximal left ICA stenosis. Normal systolic velocities are noted in the proximal left external carotid artery. There is antegrade flow in the left vertebral artery. IMPRESSION: 1. Bilateral 20-39% proximal ICA stenoses. 2. Antegrade flow in both vertebral arteries.
--- NOTE | 2018-04-12 14:51 | CP.PCM.PN ---
<Conner Reveles - Last Filed: 04/12/18 14:52> Subjective - Date & Time of Evaluation Date of Evaluation: 04/12/18 Time of Evaluation: 14:49 - Subjective Subjective: Neurology Progress Note Patient seen and assessed at bedside. No acute events overnight noted. Patient had paulson catheter removed yesterday afternoon and has been voiding freely since that time without difficulty. Patient has no new complaints at this time and 12 point ROS is unremarkable. Objective - Vital Signs/Intake and Output Vital Signs (last 24 hours): Temp Pulse Resp BP Pulse Ox 97.2 F L 71 19 159/95 H 100 04/12/18 12:00 04/12/18 12:00 04/12/18 12:00 04/12/18 12:00 04/11/18 06:00 Intake and Output: 04/12/18 04/12/18 06:59 18:59 Intake Total 240 Output Total 350 Balance -110 - Medications Medications: Current Medications Aspirin (Aspirin Chewable) 81 mg PO DAILY [facility] Last Admin: 04/12/18 09:21 Dose: 81 mg Atorvastatin Calcium (Lipitor) 80 mg PO DIN [facility] Last Admin: 04/11/18 17:47 Dose: 80 mg Clopidogrel Bisulfate (Plavix) 75 mg PO DAILY [facility] Last Admin: 04/12/18 09:22 Dose: 75 mg Dextrose (Dextrose 50% Inj) 0 ml IV STAT PRN; Protocol PRN Reason: Hypoglycemia Protocol Glipizide (Glucotrol) 5 mg PO DAILY [facility] Last Admin: 04/12/18 09:21 Dose: 5 mg Dextrose (Dextrose 5% In Water 1000 Ml) 1,000 mls @ 0 mls/hr IV .Q0M PRN; Protocol PRN Reason: Hypoglycemia Protocol Insulin Human Regular (Humulin R Med) 0 units SC ACHS [facility]; Protocol Last Admin: 04/12/18 13:00 Dose: 1 u Lisinopril (Zestril) 5 mg PO DAILY [facility] Last Admin: 04/12/18 09:21 Dose: 5 mg - Labs Labs: 04/12/18 06:00 04/12/18 06:00 PT 11.8 SECONDS (9.4-12.5) 04/09/18 18:00 INR 1.03 04/09/18 18:00 APTT 29.4 Seconds (25.1-36.5) 04/09/18 18:00 - Constitutional Appears: Non-toxic, No Acute Distress - Head Exam Head Exam: ATRAUMATIC - Eye Exam Eye Exam: EOMI, Normal appearance, PERRL Pupil Exam: NORMAL ACCOMODATION - ENT Exam ENT Exam: Mucous Membranes Moist - Neck Exam Neck Exam: Full ROM - Respiratory Exam Respiratory Exam: Clear to Ausculation Bilateral - Cardiovascular Exam Cardiovascular Exam: REGULAR RHYTHM - GI/Abdominal Exam GI & Abdominal Exam: Soft, Normal Bowel Sounds. absent: Tenderness - Neurological Exam Neurological Exam: Alert, Awake, CN II-XII Intact, Oriented x3 Additional comments: Patient oriented to: person, place, time Cranial nerves: EOM's Intact: Normal, Tongue Deviation: Normal Cerebellar Function: Finger to Nose: Abnormal Right (Dysmetria noted; Interval improvement noted), Heel to Garcia: Normal Upper motor neuron: Pronator Drift: Normal Sensory exam: Lower Extremity 2 Point Discrimination: Normal, Lower Extremity Light Touch: Normal, Upper Extremity 2 Point Discrimination: Normal, Upper Extremity Light Touch: Normal Neuro motor strength exam: Left Upper Extremity: 5, Right Upper Extremity: 3, Left Lower Extremity: 5, Right Lower Extremity: 4 Coma Scale Eye Opening: SPONTANEOUS Coma Scale Motor Response: OBEYS COMMANDS Coma Scale Verbal: Oriented Coma Scale Total: 15 - Psychiatric Exam Psychiatric exam: Normal Affect, Normal Mood - Skin Skin Exam: Dry, Intact, Warm Assessment and Plan - Assessment and Plan (Free Text) Assessment: 52 year old male with a past medical history significant for HTN, HLD, DM2, and previous TIA who presented with right sided stroke like symptoms including facial droop, extremity weakness and dysarthria 72 hours [employer]. Plan: -MRI Brain showed 10mm acute infarct in the left thalamus -MRA Head was limited in its utility but showed no gross vascular abnormalities -CT Head (04/10/18) showed 9mm left thalamic chronic infarct, chronic white matter infarct within right periventricular white matter adjacent to the right lateral ventricle and scattered white matter chronic microvascular ischemic disease -Continue DAPT with Aspirin and Plavix for 21 days and then just Plavix for a total of 90 days -Continue Lipitor -Continue Lisinopril -Continue PT, OT and Speech Therapy Disposition: Patient pending [facility] placement. Patient seen and case discussed with attending, Dr. Brian. Cnoner Reveles, PGY2 <Daniel Brian - Last Filed: 04/14/18 13:49> Objective - Vital Signs/Intake and Output Vital Signs (last 24 hours): Temp Pulse Resp BP Pulse Ox 98.7 F 75 20 135/88 94 L 04/14/18 05:51 04/14/18 10:35 04/14/18 05:51 04/14/18 10:35 04/14/18 05:51 Intake and Output: 04/14/18 04/14/18 06:59 18:59 Intake Total 480 Output Total 500 Balance -20 - Labs Labs: 04/14/18 07:00 04/14/18 07:00 PT 11.8 SECONDS (9.4-12.5) 04/09/18 18:00 INR 1.03 04/09/18 18:00 APTT 29.4 Seconds (25.1-36.5) 04/09/18 18:00 Attending/Attestation - Attestation I have personally seen and examined this patient.: Yes I have fully participated in the care of the patient.: Yes I have reviewed all pertinent clinical information, including history, physical exam and plan: Yes Notes (Text): I agree with the assessment and plan: -Continue DAPT with Aspirin and Plavix for 21 days and then just Plavix for a total of 90 days -Continue Lipitor -Continue Lisinopril -Continue PT, OT and Speech Therapy
--- NOTE | 2018-04-12 16:10 | CARD ---
APPROVED REPORT Date of service: 04/12/2018 EXAM: Two-dimensional and M-mode echocardiogram with Doppler and color Doppler. INDICATION CVA/TIA 2D DIMENSIONS Left Atrium (2D)3.9 (1.6-4.0cm)IVSd1.1 (0.7-1.1cm) LVDd4.4 (3.9-5.9cm)PWd1.2 (0.7-1.1cm) LVDs3.1 (2.5-4.0cm)FS (%) 30.9 % LVEF (%)58.7 (>50%) M-Mode DIMENSIONS Aortic Root4.10 (2.2-3.7cm)Aortic Cusp Exc.2.20 (1.5-2.0cm) Aortic Valve AoV Peak Trsgszjr309.0cm/Bill Peak GR.8mmHg Mitral Valve MV E Ooteviva94.1cm/sMV A Ebqlqkeo47.9cm/sE/A ratio0.9 TDI Lateral E' Peak V9.46cm/sMedial E' Peak V7.80cm/sE/Lateral E'7.7 E/Medial E'9.4 Pulmonary Valve PV Peak Grieepsz88.8cm/sPV Peak Grad.3mmHg Tricuspid Valve TR Peak Jjrvgxbr528nh/sRAP [id number] Peak Gr.23mmHg [id number] LEFT VENTRICLE The left ventricle is normal size. There is normal left ventricular wall thickness. The left ventricular function is normal. The left ventricular ejection fraction is within the normal range. There is normal LV segmental wall motion. Transmitral Doppler flow pattern is Grade I-abnormal relaxation pattern. RIGHT VENTRICLE The right ventricle is normal size. There is normal right ventricular wall thickness. The right ventricular systolic function is normal. ATRIA The left atrium size is normal. The right atrium size is normal. AORTIC VALVE The aortic valve is mildly thickened. There is mild aortic regurgitation. MITRAL VALVE The mitral valve is mildly thickened. Mitral regurgitation is mild. There is no mitral valve stenosis. TRICUSPID VALVE The tricuspid valve is normal in structure. There is mild tricuspid regurgitation. PULMONIC VALVE The pulmonary valve is normal in structure. There is no pulmonic valvular regurgitation. GREAT VESSELS The aortic root is mildly enlarged. The IVC is normal in size and collapses >50% with inspiration. <Conclusion> There is normal left ventricular wall thickness. The left ventricular function is normal. The left ventricular ejection fraction is within the normal range. There is normal LV segmental wall motion. Transmitral Doppler flow pattern is Grade I-abnormal relaxation pattern. There is mild aortic regurgitation. The aortic root is mildly enlarged. Mitral regurgitation is mild. There is mild tricuspid regurgitation.
--- NOTE | 2018-04-12 16:58 | CP.PCM.PN ---
<Eugene Worthington - Last Filed: 04/12/18 16:58> Subjective - Date & Time of Evaluation Date of Evaluation: 04/12/18 Time of Evaluation: 07:00 - Subjective Subjective: Pt seen and examined, no new complaints, states his right sided weakness has remained unchanged. Objective - Vital Signs/Intake and Output Vital Signs (last 24 hours): Temp Pulse Resp BP Pulse Ox 97.2 F L 77 19 161/92 H 100 04/12/18 12:00 04/12/18 15:18 04/12/18 12:00 04/12/18 15:18 04/11/18 06:00 Intake and Output: 04/12/18 04/12/18 06:59 18:59 Intake Total 240 Output Total 350 Balance -110 - Medications Medications: Current Medications Amlodipine Besylate (Norvasc) 5 mg PO DAILY [facility] Aspirin (Aspirin Chewable) 81 mg PO DAILY [facility] Last Admin: 04/12/18 09:21 Dose: 81 mg Atorvastatin Calcium (Lipitor) 80 mg PO DIN [facility] Last Admin: 04/11/18 17:47 Dose: 80 mg Clopidogrel Bisulfate (Plavix) 75 mg PO DAILY [facility] Last Admin: 04/12/18 09:22 Dose: 75 mg Dextrose (Dextrose 50% Inj) 0 ml IV STAT PRN; Protocol PRN Reason: Hypoglycemia Protocol Glipizide (Glucotrol) 5 mg PO DAILY [facility] Last Admin: 04/12/18 09:21 Dose: 5 mg Dextrose (Dextrose 5% In Water 1000 Ml) 1,000 mls @ 0 mls/hr IV .Q0M PRN; Protocol PRN Reason: Hypoglycemia Protocol Insulin Human Regular (Humulin R Med) 0 units SC ACHS [facility]; Protocol Last Admin: 04/12/18 13:00 Dose: 1 u Lisinopril (Zestril) 10 mg PO DAILY [facility] - Labs Labs: 04/12/18 06:00 04/12/18 06:00 PT 11.8 SECONDS (9.4-12.5) 04/09/18 18:00 INR 1.03 04/09/18 18:00 APTT 29.4 Seconds (25.1-36.5) 04/09/18 18:00 - Constitutional Appears: No Acute Distress - Head Exam Head Exam: ATRAUMATIC, NORMOCEPHALIC - Eye Exam Eye Exam: EOMI - ENT Exam ENT Exam: Mucous Membranes Moist - Neck Exam Neck Exam: Full ROM - Respiratory Exam Respiratory Exam: Clear to Ausculation Bilateral, NORMAL BREATHING PATTERN. absent: Accessory Muscle Use, Respiratory Distress - Cardiovascular Exam Cardiovascular Exam: RRR, +S1, +S2. absent: Diastolic murmur, Murmur - GI/Abdominal Exam GI & Abdominal Exam: Soft, Normal Bowel Sounds - Extremities Exam Extremities Exam: absent: Calf Tenderness, Full ROM, Pedal Edema - Neurological Exam Neurological Exam: Alert, Awake, Oriented x3 Neuro motor strength exam: Left Upper Extremity: 5, Right Upper Extremity: 4, Left Lower Extremity: 5, Right Lower Extremity: 3 - Psychiatric Exam Psychiatric exam: Normal Affect, Normal Mood - Skin Skin Exam: Dry, Intact, Warm Assessment and Plan - Assessment and Plan (Free Text) Assessment: Pt is a 52 yo male with a PMH of HTN, HLD, DM,TIA who presents complaining of r ight sided facial droop, right UE weakness, right LE weakness and dysarthria which started Sunday at 5:30pm. Plan: CVA - HA1C 11.1, B12 251, TSH 2.99 - ASA 81mg, lipitor 80mg with dinner, plavix 75mg PO - lipid panel: trig 354, TC 249, LDL 156. HDL 46 - PT: improvemtn with skilled PT, still exhibits dynamic balance impairment, weakness of Right side of facial muscles and reduced trunk control. Pt will benefit from continued skilled PT to restore his PLOF. Continue PT, Acute rehab - THAI MASSEUR bedside swallow passed, continue neuro checks, aspiration precautions - MRA head: shows no evidence of occlusion - MRI brain: there is a 10mm acute infarct in the left thalamus - Head CT: diffuse atrophy, left thalamic 9mm hypodensity consistent with c hronic infarct. Chronic white matter infarct within the right periventricular white matter adjacent to the right lateral ventral. mild scattered white matter hypodensities which are nonspecific but often seen with chronic microvascular ischemic disease. - ECHO: EF 58.7% - carotid US: Bl stenosis 20-39% prox right ICA. Anterograde flow in both vertebral arteries. - Neuro Consult, Snehal randolph continue DAPT with Aspirin and Plavix, Lipitor, Lisinopril. Pt should follow up with Dr Brian within 2 weeks after being discharged from rehab. - pt to be transferred to [facility] once his BP is well controlled, most likely tomorrow HTN - lisinopril 5mg - pt BP 160's/90's - given extra dose of lisinopril 5mg - if pressure is well controlled tomorrow will send pt to acute rehab [facility] - continue to monitor DM - SSI - accuchecks HLD - lipior 80mg with dinner Ppx, diet - NPO - SCD Pt seen, examined, assessment and plan discussed with Dr Remington Worthington PGY1, Internal Medicine Resident <Tonya Macedo - Last Filed: 04/12/18 17:17> Objective - Vital Signs/Intake and Output Vital Signs (last 24 hours): Temp Pulse Resp BP Pulse Ox 97.2 F L 77 19 161/92 H 100 04/12/18 12:00 04/12/18 15:18 04/12/18 12:00 04/12/18 15:18 04/11/18 06:00 Intake and Output: 04/12/18 04/12/18 06:59 18:59 Intake Total 240 Output Total 350 Balance -110 - Medications Medications: Current Medications Amlodipine Besylate (Norvasc) 5 mg PO DAILY [facility] Aspirin (Aspirin Chewable) 81 mg PO DAILY [facility] Last Admin: 04/12/18 09:21 Dose: 81 mg Atorvastatin Calcium (Lipitor) 80 mg PO DIN [facility] Last Admin: 04/11/18 17:47 Dose: 80 mg Clopidogrel Bisulfate (Plavix) 75 mg PO DAILY [facility] Last Admin: 04/12/18 09:22 Dose: 75 mg Dextrose (Dextrose 50% Inj) 0 ml IV STAT PRN; Protocol PRN Reason: Hypoglycemia Protocol Glipizide (Glucotrol) 5 mg PO DAILY [facility] Last Admin: 04/12/18 09:21 Dose: 5 mg Dextrose (Dextrose 5% In Water 1000 Ml) 1,000 mls @ 0 mls/hr IV .Q0M PRN; Protocol PRN Reason: Hypoglycemia Protocol Insulin Human Regular (Humulin R Med) 0 units SC [facility]; Protocol Last Admin: 04/12/18 13:00 Dose: 1 u Lisinopril (Zestril) 10 mg PO DAILY [facility] - Labs Labs: 04/12/18 06:00 04/12/18 06:00 PT 11.8 SECONDS (9.4-12.5) 04/09/18 18:00 INR 1.03 04/09/18 18:00 APTT 29.4 Seconds (25.1-36.5) 04/09/18 18:00 Attending/Attestation - Attestation I have personally seen and examined this patient.: Yes I have fully participated in the care of the patient.: Yes I have reviewed all pertinent clinical information, including history, physical exam and plan: Yes Notes (Text): 04/12/18 17:16 Attending note; Patient seen and examined with resident. Patient is alert and awake. complaining of right sided weakness. Patient is a 52-year-old male with no significant PMHx presented to the [facility] escorted by his spouse with complaints of weakness, dizziness, slurred speech and difficulty ambulating. Patient did admit to falling this morning as well as yesterday. His symptoms started at 5 PM last night. He did not come to the hospital at that time. 1. Acute CVA; CT head consistent with 9 mm hypodensity in the left thalamic region consistent with subacute infarct. Patient had right-sided weakness and gait instability. MRA head: shows no evidence of occlusion MRI brain: there is a 10mm acute infarct in the left thalamus. Continue aspirin, Plavix and Lipitor. EKG with normal sinus rhythm. Chest x-ray is normal. Carotid Doppler without significant stenosis. Echocardiogram showed normal LV function. PT evaluation, speech and swallow evaluation appreciated. Acute rehabilitation recommended. 2. Hypertension; continue lisinopril. Dosage adjusted. 3. Diabetes; hemoglobin A1c is 11.1. Dietary education given. Started on glipizide low-dose. Started on carb consistent diet/ dysphagia diet. Upon discharge the patient will follow-up with PMD Dr. Montague. Case discussed with child welfare caseworker for acute rehabilitation placement. Pending authorization. The diagnosis, follow-up plan discussed with patient and patient's in detail. 04/12/18 17:16
[2018-04-13 07:54] LABS: BASO # 0.02 K/mm3 (0.0-2.0); BASO % 0.2 % (0.0-3.0); EOS # 0.2 (0.0-0.7); EOS % 1.9 % (1.5-5.0); GRAN # 5.18 (1.4-6.5); GRAN % 61.4 % (50.0-68.0); HEMOGLOBIN 14.7 g/dL (14.0-18.0); LYMPH # 2.4 (1.2-3.4); LYMPH % 28.9 % (22.0-35.0); MEAN CELL VOLUME 88.6 fl (80.0-105.0); MEAN CORPUSCULAR HEMOGLOBIN 30.4 pg (25.0-35.0); MEAN CORPUSCULAR HGB CONC 34.3 g/dl (31.0-37.0); MONO # 0.6 (0.1-0.6); MONO % 7.6 % (1.0-6.0); RBC 4.84 10^6/uL (3.5-6.1); RED CELL DISTRIBUTION WIDTH 12.5 % (11.5-14.5); WHITE BLOOD COUNT 8.4 10^3/uL (4.5-11.0)
[2018-04-13 08:14] LABS: ALB/GLOB RATIO 1.3 (1.1-1.8); ALBUMIN 4.1 g/dL (3.0-4.8); ALT/SGPT 22 U/L (7-56); AST/SGOT 24 U/L (17-59); BLOOD UREA NITROGEN 14 mg/dL (7-21); CALCIUM 9.2 mg/dL (8.4-10.5); GFR NON-AFRICAN AMERICAN > 60
[2018-04-13] MEDS: Insulin Reg-MEDIUM-Coverage SC SCH ×4 (08:23→21:54)
[2018-04-13] MEDS ORDERED: Potassium Chloride 20 mEq ER Tab PO ONE (08:32)
--- NOTE | 2018-04-13 11:10 | CP.PCM.PN ---
<Selene Lozano - Last Filed: 04/13/18 11:26> Subjective - Date & Time of Evaluation Date of Evaluation: 04/13/18 Time of Evaluation: 11:10 - Subjective Subjective: PGY1 Progress Note for Dr. Macedo Patient was seen and evaluated at bedside this morning during dialysis treatment. is at bedside. Patient states his right sided weakness has remained unchanged. Patient denies chest pain, SOB, headache, nausea, vomiting, fever, chills, and/or foot pain. Patient otherwise has no complaint Objective - Vital Signs/Intake and Output Vital Signs (last 24 hours): Temp Pulse Resp BP Pulse Ox 98 F 60 18 127/73 96 04/13/18 06:00 04/13/18 09:59 04/13/18 06:00 04/13/18 09:59 04/13/18 06:00 Intake and Output: 04/13/18 04/13/18 06:59 18:59 Intake Total 2040 Output Total 3525 Balance -1485 - Medications Medications: Current Medications Amlodipine Besylate (Norvasc) 5 mg PO DAILY [facility] Last Admin: 04/13/18 09:59 Dose: 5 mg Aspirin (Aspirin Chewable) 81 mg PO DAILY [facility] Last Admin: 04/13/18 09:59 Dose: 81 mg Atorvastatin Calcium (Lipitor) 80 mg PO DIN [facility] Last Admin: 04/12/18 18:20 Dose: 80 mg Clopidogrel Bisulfate (Plavix) 75 mg PO DAILY [facility] Last Admin: 04/13/18 09:59 Dose: 75 mg Dextrose (Dextrose 50% Inj) 0 ml IV STAT PRN; Protocol PRN Reason: Hypoglycemia Protocol Glipizide (Glucotrol) 5 mg PO DAILY [facility] Last Admin: 04/13/18 09:59 Dose: 5 mg Dextrose (Dextrose 5% In Water 1000 Ml) 1,000 mls @ 0 mls/hr IV .Q0M PRN; Pro tocol PRN Reason: Hypoglycemia Protocol Insulin Human Regular (Humulin R Med) 0 units SC [facility]; Protocol Last Admin: 04/13/18 08:23 Dose: Not Given Lisinopril (Zestril) 10 mg PO DAILY [facility] Last Admin: 04/13/18 09:59 Dose: 10 mg - Labs Labs: 04/13/18 07:00 04/13/18 07:00 PT 11.8 SECONDS (9.4-12.5) 04/09/18 18:00 INR 1.03 04/09/18 18:00 APTT 29.4 Seconds (25.1-36.5) 04/09/18 18:00 - Additional Findings Additional findings: - Constitutional Appears: No Acute Distress - Head Exam Head Exam: ATRAUMATIC, NORMOCEPHALIC - Eye Exam Eye Exam: EOMI - ENT Exam ENT Exam: Mucous Membranes Moist - Neck Exam Neck Exam: Full ROM - Respiratory Exam Respiratory Exam: Clear to Ausculation Bilateral, NORMAL BREATHING PATTERN. absent: Accessory Muscle Use, Respiratory Distress - Cardiovascular Exam Cardiovascular Exam: RRR, +S1, +S2. absent: Diastolic murmur, Murmur - GI/Abdominal Exam GI & Abdominal Exam: Soft, Normal Bowel Sounds - Extremities Exam Extremities Exam: absent: Calf Tenderness, Full ROM, Pedal Edema - Neurological Exam Neurological Exam: Alert, Awake, Oriented x3 Neuro motor strength exam: Left Upper Extremity: 5, Right Upper Extremity: 4, Left Lower Extremity: 5, Right Lower Extremity: 3 Negative pronator drift Right-sided facial droop - Psychiatric Exam Psychiatric exam: Normal Affect, Normal Mood - Skin Skin Exam: Dry, Intact, Warm Assessment and Plan - Assessment and Plan (Free Text) Assessment: Mr. Sanchez is a 52-year-old male with a PMH of HTN, HLD, DM, and TIA who presents complaining of right sided facial droop, right UE weakness, right LE weakness and dysarthria which started Sunday at 5:30pm. Plan: CVA - HA1C 11.1, B12 251, TSH 2.99 - Lipid panel: trig 354, TC 249, LDL 156. HDL 46 - Continue ASA 81mg, lipitor 80mg with dinner, plavix 75mg PO - Start Norvasc 5mg PO Daily - MRA head: shows no evidence of occlusion - MRI brain: there is a 10mm acute infarct in the left thalamus - Head CT: diffuse atrophy, left thalamic 9mm hypodensity consistent with chronic infarct. Chronic white matter infarct within the right periventricular white matter adjacent to the right lateral ventral. mild scattered white matter hypodensities which are nonspecific but often seen with chronic microvascular ischemic disease. - ECHO: EF 58.7% - Carotid US: Bl stenosis 20-39% prox right ICA. Anterograde flow in both vertebral arteries. - Neurology consulted (Dr. Brian) recommends to continue DAPT with Aspirin and Plavix, Lipitor, Lisinopril. Patient should follow up with Dr Brian within 2 weeks after being discharged from rehab. - PT OT ordered PT: improvement with skilled PT, still exhibits dynamic balance impairment, weakness of Right side of facial muscles and reduced trunk control. Patient will benefit from continued skilled PT to restore his PLOF. - Continue PT; recommends patient be discharged to acute rehab - Continue neuro checks, aspiration precautions - Patient to be transferred to [facility] once his BP is well controlled HTN - Continue isinopril 5mg - Start Norvasc 5mg PO Daily - Monitor BP - continue to monitor DM - SSI - Accuchecks - Hypoglycemic protocol - HgbA1c 11.1 HLD - Continue lipior 80mg with dinner Ppx, diet - Modified consistency diet - Continue SCD Dispo: Pending discharge to Acute Rehab Facility Patient seen and case discussed in detail with Dr Remington Lozano PGY1 <Tonya Macedo - Last Filed: 04/13/18 14:07> Objective - Vital Signs/Intake and Output Vital Signs (last 24 hours): Temp Pulse Resp BP Pulse Ox 97.1 F L 78 19 146/95 H 96 04/13/18 12:00 04/13/18 12:00 04/13/18 12:00 04/13/18 12:00 04/13/18 06:00 Intake and Output: 04/13/18 04/13/18 06:59 18:59 Intake Total 2040 Output Total 3525 Balance -1485 - Medications Medications: Current Medications Amlodipine Besylate (Norvasc) 5 mg PO DAILY [facility] Last Admin: 04/13/18 09:59 Dose: 5 mg Aspirin (Aspirin Chewable) 81 mg PO DAILY [facility] Last Admin: 04/13/18 09:59 Dose: 81 mg Atorvastatin Calcium (Lipitor) 80 mg PO DIN [facility] Last Admin: 04/12/18 18:20 Dose: 80 mg Clopidogrel Bisulfate (Plavix) 75 mg PO DAILY [facility] Last Admin: 04/13/18 09:59 Dose: 75 mg Dextrose (Dextrose 50% Inj) 0 ml IV STAT PRN; Protocol PRN Reason: Hypoglycemia Protocol Glipizide (Glucotrol) 5 mg PO DAILY [facility] Last Admin: 04/13/18 09:59 Dose: 5 mg Dextrose (Dextrose 5% In Water 1000 Ml) 1,000 mls @ 0 mls/hr IV .Q0M PRN; Protocol PRN Reason: Hypoglycemia Protocol Insulin Human Regular (Humulin R Med) 0 units SC ACHS [facility]; Protocol Last Admin: 04/13/18 12:50 Dose: 1 u Lisinopril (Zestril) 10 mg PO DAILY [facility] Last Admin: 04/13/18 09:59 Dose: 10 mg - Labs Labs: 04/13/18 07:00 04/13/18 07:00 PT 11.8 SECONDS (9.4-12.5) 04/09/18 18:00 INR 1.03 04/09/18 18:00 APTT 29.4 Seconds (25.1-36.5) 04/09/18 18:00 Attending/Attestation - Attestation I have personally seen and examined this patient.: Yes I have fully participated in the care of the patient.: Yes I have reviewed all pertinent clinical information, including history, physical exam and plan: Yes Notes (Text): 04/13/18 14:06 Attending note; Patient seen and examined with resident. Patient's by the bedside. Patient is alert and awake. complaining of right sided weakness. Patient is a 52-year-old male with no significant PMHx presented to the [facility] escorted by his spouse with complaints of weakness, dizziness, slurred speech and difficulty ambulating. Patient did admit to falling this morning as well as yesterday. His symptoms started at 5 PM last night. He did not come to the hospital at that time. 1. Acute CVA; CT head consistent with 9 mm hypodensity in the left thalamic r egion consistent with subacute infarct. Patient had right-sided weakness and gait instability. MRA head: shows no evidence of occlusion MRI brain: there is a 10mm acute infarct in the left thalamus. Continue aspirin, Plavix and Lipitor. EKG with normal sinus rhythm. Chest x-ray is normal. Carotid Doppler without significant stenosis. Echocardiogram showed normal LV function. PT evaluation, speech and swallow evaluation appreciated. Acute rehabilitation recommended. 2. Hypertension; continue lisinopril. Dosage adjusted. 3. Diabetes; hemoglobin A1c is 11.1. Dietary education given. Started on g lipizide low-dose. Started on carb consistent diet/ dysphagia diet. Upon discharge the patient will follow-up with PMD Dr. Montague. Insurance authorization obtained. Case discussed with sr. social media & mobile manager in detail. Patient will be transferred to [facility] rehabilitation tomorrow at 11 AM. Transportation arranged. The diagnosis, follow-up plan discussed with patient and patient's in detail.
[2018-04-14 05:56] VITALS: BP 135/88; PULSE 75; RESP 20; TEMP 98.7; O2SAT 94
[2018-04-14 07:40] LABS: BASO # 0.03 K/mm3 (0.0-2.0); BASO % 0.2 % (0.0-3.0); EOS # 0.1 (0.0-0.7); EOS % 1.1 % (1.5-5.0); GRAN # 9.42 (1.4-6.5); GRAN % 76.4 % (50.0-68.0); HEMOGLOBIN 15.5 g/dL (14.0-18.0); LYMPH # 1.8 (1.2-3.4); LYMPH % 14.4 % (22.0-35.0); MEAN CELL VOLUME 88.9 fl (80.0-105.0); MEAN CORPUSCULAR HEMOGLOBIN 30.3 pg (25.0-35.0); MEAN CORPUSCULAR HGB CONC 34.1 g/dl (31.0-37.0); MEAN PLATELET VOLUME 9.8 fl (7.0-11.0); MONO % 7.9 % (1.0-6.0); RBC 5.12 10^6/uL (3.5-6.1); RED CELL DISTRIBUTION WIDTH 12.6 % (11.5-14.5); WHITE BLOOD COUNT 12.3 10^3/uL (4.5-11.0)
[2018-04-14 07:57] LABS: ALB/GLOB RATIO 1.2 (1.1-1.8); ALBUMIN 4.4 g/dL (3.0-4.8); ALT/SGPT 28 U/L (7-56); AST/SGOT 32 U/L (17-59); BLOOD UREA NITROGEN 17 mg/dL (7-21); CALCIUM 9.2 mg/dL (8.4-10.5); GFR NON-AFRICAN AMERICAN > 60
--- NOTE | 2018-04-14 08:23 | CP.PCM.DIS ---
<Selene Lozano - Last Filed: 04/14/18 15:13> Provider - Provider Date of Admission: 04/09/18 18:41 Attending physician: Tonya Macedo MD Primary care physician: NO FAMILY PROVIDER Consults: 04/09/18 19:00 Physician Consult Stat Comment: Consulting Provider: Daniel Brian Consulting Physician: Daniel Brian Reason for Consult: L thalamic CVA Time Spent in preparation of Discharge (in minutes): 45 Diagnosis - Discharge Diagnosis (1) CVA (cerebral vascular accident) Status: Acute Priority: Medium Hospital Course - Lab Results Lab Results: Most Recent Lab Values WBC 12.3 10^3/uL (4.5-11.0) H D 04/14/18 07:00 RBC 5.12 10^6/uL (3.5-6.1) 04/14/18 07:00 Hgb 15.5 g/dL (14.0-18.0) 04/14/18 07:00 Hct 45.5 % (42.0-52.0) 04/14/18 07:00 MCV 88.9 fl (80.0-105.0) 04/14/18 07:00 MCH 30.3 pg (25.0-35.0) 04/14/18 07:00 MCHC 34.1 g/dl (31.0-37.0) 04/14/18 07:00 RDW 12.6 % (11.5-14.5) 04/14/18 07:00 Plt Count 245 10^3/uL (120.0-450.0) 04/14/18 07:00 MPV 9.8 fl (7.0-11.0) 04/14/18 07:00 Gran % 76.4 % (50.0-68.0) H 04/14/18 07:00 Lymph % (Auto) 14.4 % (22.0-35.0) L 04/14/18 07:00 Walton % (Auto) 7.9 % (1.0-6.0) H 04/14/18 07:00 Eos % (Auto) 1.1 % (1.5-5.0) L 04/14/18 07:00 Baso % (Auto) 0.2 % (0.0-3.0) 04/14/18 07:00 Gran # 9.42 (1.4-6.5) H 04/14/18 07:00 Lymph # (Auto) 1.8 (1.2-3.4) 04/14/18 07:00 Walton # (Auto) 1.0 (0.1-0.6) H 04/14/18 07:00 Eos # (Auto) 0.1 (0.0-0.7) 04/14/18 07:00 Baso # (Auto) 0.03 K/mm3 (0.0-2.0) 04/14/18 07:00 PT 11.8 SECONDS (9.4-12.5) 04/09/18 18:00 INR 1.03 04/09/18 18:00 APTT 29.4 Seconds (25.1-36.5) 04/09/18 18:00 Sodium 139 mmol/L (132-148) 04/14/18 07:00 Potassium 3.8 mmol/L (3.6-5.0) 04/14/18 07:00 Chloride 107 mmol/L (98-107) 04/14/18 07:00 Carbon Dioxide 20 mmol/L (21-33) L 04/14/18 07:00 Anion Gap 15 (10-20) 04/14/18 07:00 BUN 17 mg/dL (7-21) 04/14/18 07:00 Creatinine 0.7 mg/dl (0.8-1.5) L 04/14/18 07:00 Est GFR ( Amer) > 60 04/14/18 07:00 Est GFR (Non-Af Amer) > 60 04/14/18 07:00 POC Glucose (mg/dL) 152 mg/dL (65-110) H 04/14/18 07:57 Random Glucose 146 mg/dL (70-110) H 04/14/18 07:00 Hemoglobin A1c 11.1 % (4.2-6.5) H 04/09/18 18:00 Calcium 9.2 mg/dL (8.4-10.5) 04/14/18 07:00 Total Bilirubin 0.6 mg/dL (0.2-1.3) 04/14/18 07:00 AST 32 U/L (17-59) 04/14/18 07:00 ALT 28 U/L (7-56) 04/14/18 07:00 Alkaline Phosphatase 60 U/L (38-126) 04/14/18 07:00 Troponin I < 0.01 ng/mL 04/09/18 18:00 Total Protein 8.1 g/dL (5.8-8.3) 04/14/18 07:00 Albumin 4.4 g/dL (3.0-4.8) 04/14/18 07:00 Globulin 3.7 gm/dL 04/14/18 07:00 Albumin/Globulin Ratio 1.2 (1.1-1.8) 04/14/18 07:00 Triglycerides 354 mg/dL (35-160) H 04/09/18 18:00 Cholesterol 249 mg/dL (130-200) H 04/09/18 18:00 LDL Cholesterol Direct 156 mg/dL (0-129) H 04/09/18 18:00 HDL Cholesterol 46 mg/dL (29-60) 04/09/18 18:00 Vitamin B12 251 pg/mL (239-931) 04/09/18 20:20 TSH 3rd Generation 2.99 mIU/mL (0.46-4.68) 04/10/18 06:00 Blood Type A POSITIVE 04/09/18 18:00 Blood Type Confirm A POSITIVE 04/10/18 05:45 Antibody Screen Negative 04/09/18 18:00 BBK History Checked No verified bt 04/09/18 18:00 - Hospital Course Hospital Course: PGY1 Hospital Course and Discharge Summary for Dr. Macedo Patient is a 52-year-old male with a PMH of HTN, HLD, DM, and previous TIA who presented to [facility] ED with a chief complaint of right-sided facial droop, right UE weakness, right LE weakness and dysarthria which started Sunday at 5:30pm. Of note, Patient came to the hospital on Sunday, however he signed out [facility] after his symptoms improved. Patient reports that his symptoms returned 04/09/18 when he was at home. Patient has had trouble speaking and forming words but has not had trouble comprehending. Patient denied loss of sensation, visual changes, seeing flashes of light, changes in taste. Patient stated he felt clumsy, had trouble walking, and couldn't move his right arm. Patient stated he does not follow with a physician and does not have regular medical care. Please see chart for complete detail. CODE STROKE was called in the ED and Patient was subsequently admitted for CVA. Please see chart for complete detail. Neurology was consulted (Dr. Brian). CT Head without contrast was obtained and revealed diffuse atrophy, left thalamic 9mm hypodensity consistent with chronic infarct. Chronic white matter infarct within the right periventricular white matter adjacent to the right lateral ventral. mild scattered white matter hypodensities which are nonspecific but often seen with chronic microvascular ischemic disease (Please see official report.) MRI brain was obtained and revealed 10mm acute infarct in the left thalamus. Per Neurology MRA was recommended, however was limited in its utility, but showed no gross vascular abnormalities. Patient was treated with DAPT with Aspirin and Plavix; Lipitor, Lisinopril. Patient was evaluated and treated by Physical Therapy who recommended rehabilitation. On day of discharge, Patient was medically optimized and hemodynamically stable for discharge to rehab facility. Patient was provided with detailed instructions both verbally and in writing to the level of the Patient's comprehension. Patient both understands and agrees to all instructions provided. Please see chart for details. Discharge Instructions Provided to Patient: Please follow up with your primary care doctor, Dr. Michael Montague, within 3-5 of discharges from acute rehab. Please follow up with neurology, Dr. Brian, within 1 week of discharge from acute rehab. Please take all medications as prescribed. Your new list of medications includes: 1. Aspirin 81mg DAILY (Stroke prevention) 2. Plavix 75mg DAILY (Stroke prevention) 3. Lisinopril 5mg DAILY (Blood pressure medication) 4. Lipitor 80mg DAILY (Cholesterol and stroke prevention) 5. Glipizide 5mg DAILY (For diabetes) Your HgbA1c for your diabetes was 11.1%. Normal level is less than 6.5%. Recommend low fat and low carb diet to improve diabetes and cholesterol. Recommend to continue physical therapy once discharged from acute rehab. If your symptoms return, please go to the nearest emergency department. Patient seen and case discussed in detail with Dr. Remington Lozano PGY1 Discharge Exam - Additional Findings Additional findings: - Constitutional Appears: No Acute Distress - Head Exam Head Exam: ATRAUMATIC, NORMOCEPHALIC - Eye Exam Eye Exam: EOMI - ENT Exam ENT Exam: Mucous Membranes Moist - Neck Exam Neck Exam: Full ROM - Respiratory Exam Respiratory Exam: Clear to Ausculation Bilateral, NORMAL BREATHING PATTERN. absent: Accessory Muscle Use, Respiratory Distress - Cardiovascular Exam Cardiovascular Exam: RRR, +S1, +S2. absent: Diastolic murmur, Murmur - GI/Abdominal Exam GI & Abdominal Exam: Soft, Normal Bowel Sounds - Extremities Exam Extremities Exam: absent: Calf Tenderness, Full ROM, Pedal Edema - Neurological Exam Neurological Exam: Alert, Awake, Oriented x3 Neuro motor strength exam: Left Upper Extremity: 5, Right Upper Extremity: 4, Left Lower Extremity: 5, Right Lower Extremity: 3 Negative pronator drift Right-sided facial droop - Psychiatric Exam Psychiatric exam: Normal Affect, Normal Mood - Skin Skin Exam: Dry, Intact, Warm Discharge Plan - Discharge Medications Prescriptions: amLODIPine [Norvasc] 5 mg PO DAILY #30 tab Aspirin [Low Dose Aspirin EC] 81 mg PO DAILY #30 tablet. GlipiZIDE [Glucotrol] 5 mg PO DAILY #30 tab Lisinopril [Zestril] 10 mg PO DAILY #30 tab - Follow Up Plan Condition: GOOD Disposition: REHAB FACILITY/REHAB UNIT Instructions: Stroke (DC), Diabetes Type 2 (DC), The ABCs of Diabetes, Diabetic Meal Planning Additional Instructions: Please follow up with your primary care doctor, Dr. Michael Montague, within 3-5 of discharges from acute rehab. Please follow up with neurology, Dr. Brian, within 1 week of discharge from acute rehab. Please take all medications as prescribed. Your new list of medications includes: 1. Aspirin 81mg DAILY (Stroke prevention) 2. Plavix 75mg DAILY (Stroke prevention) 3. Lisinopril 5mg DAILY (Blood pressure medication) 4. Lipitor 80mg DAILY (Cholesterol and stroke prevention) 5. Glipizide 5mg DAILY (For diabetes) Your HgbA1c for your diabetes was 11.1%. Normal level is less than 6.5%. Recommend low fat and low carb diet to improve diabetes and cholesterol. Recommend to continue physical therapy once discharged from acute rehab. If your symptoms return, please go to the nearest emergency department. Referrals: Daniel Brian MD [Staff Provider] - <Tonya Macedo - Last Filed: 04/14/18 15:25> Provider - Provider Date of Admission: 04/09/18 18:41 Attending physician: Tonya Macedo MD Primary care physician: NO FAMILY PROVIDER Consults: 04/09/18 19:00 Physician Consult Stat Comment: Consulting Provider: Daniel Brian Consulting Physician: Daniel Brian Reason for Consult: L thalamic CVA Hospital Course - Lab Results Lab Results: Micro Results 04/14/18 02:55 Stool C. difficile Antigen & Toxins A,B - Final Most Recent Lab Values WBC 12.3 10^3/uL (4.5-11.0) H D 04/14/18 07:00 RBC 5.12 10^6/uL (3.5-6.1) 04/14/18 07:00 Hgb 15.5 g/dL (14.0-18.0) 04/14/18 07:00 Hct 45.5 % (42.0-52.0) 04/14/18 07:00 MCV 88.9 fl (80.0-105.0) 04/14/18 07:00 MCH 30.3 pg (25.0-35.0) 04/14/18 07:00 MCHC 34.1 g/dl (31.0-37.0) 04/14/18 07:00 RDW 12.6 % (11.5-14.5) 04/14/18 07:00 Plt Count 245 10^3/uL (120.0-450.0) 04/14/18 07:00 MPV 9.8 fl (7.0-11.0) 04/14/18 07:00 Gran % 76.4 % (50.0-68.0) H 04/14/18 07:00 Lymph % (Auto) 14.4 % (22.0-35.0) L 04/14/18 07:00 Walton % (Auto) 7.9 % (1.0-6.0) H 04/14/18 07:00 Eos % (Auto) 1.1 % (1.5-5.0) L 04/14/18 07:00 Baso % (Auto) 0.2 % (0.0-3.0) 04/14/18 07:00 Gran # 9.42 (1.4-6.5) H 04/14/18 07:00 Lymph # (Auto) 1.8 (1.2-3.4) 04/14/18 07:00 Walton # (Auto) 1.0 (0.1-0.6) H 04/14/18 07:00 Eos # (Auto) 0.1 (0.0-0.7) 04/14/18 07:00 Baso # (Auto) 0.03 K/mm3 (0.0-2.0) 04/14/18 07:00 PT 11.8 SECONDS (9.4-12.5) 04/09/18 18:00 INR 1.03 04/09/18 18:00 APTT 29.4 Seconds (25.1-36.5) 04/09/18 18:00 Sodium 139 mmol/L (132-148) 04/14/18 07:00 Potassium 3.8 mmol/L (3.6-5.0) 04/14/18 07:00 Chloride 107 mmol/L (98-107) 04/14/18 07:00 Carbon Dioxide 20 mmol/L (21-33) L 04/14/18 07:00 Anion Gap 15 (10-20) 04/14/18 07:00 BUN 17 mg/dL (7-21) 04/14/18 07:00 Creatinine 0.7 mg/dl (0.8-1.5) L 04/14/18 07:00 Est GFR ( Amer) > 60 04/14/18 07:00 Est GFR (Non-Af Amer) > 60 04/14/18 07:00 POC Glucose (mg/dL) 152 mg/dL (65-110) H 04/14/18 07:57 Random Glucose 146 mg/dL (70-110) H 04/14/18 07:00 Hemoglobin A1c 11.1 % (4.2-6.5) H 04/09/18 18:00 Calcium 9.2 mg/dL (8.4-10.5) 04/14/18 07:00 Total Bilirubin 0.6 mg/dL (0.2-1.3) 04/14/18 07:00 AST 32 U/L (17-59) 04/14/18 07:00 ALT 28 U/L (7-56) 04/14/18 07:00 Alkaline Phosphatase 60 U/L (38-126) 04/14/18 07:00 Troponin I < 0.01 ng/mL 04/09/18 18:00 Total Protein 8.1 g/dL (5.8-8.3) 04/14/18 07:00 Albumin 4.4 g/dL (3.0-4.8) 04/14/18 07:00 Globulin 3.7 gm/dL 04/14/18 07:00 Albumin/Globulin Ratio 1.2 (1.1-1.8) 04/14/18 07:00 Triglycerides 354 mg/dL (35-160) H 04/09/18 18:00 Cholesterol 249 mg/dL (130-200) H 04/09/18 18:00 LDL Cholesterol Direct 156 mg/dL (0-129) H 04/09/18 18:00 HDL Cholesterol 46 mg/dL (29-60) 04/09/18 18:00 Vitamin B12 251 pg/mL (239-931) 04/09/18 20:20 TSH 3rd Generation 2.99 mIU/mL (0.46-4.68) 04/10/18 06:00 Blood Type A POSITIVE 04/09/18 18:00 Blood Type Confirm A POSITIVE 04/10/18 05:45 Antibody Screen Negative 04/09/18 18:00 BBK History Checked No verified bt 04/09/18 18:00 Attending/Attestation - Attestation I have personally seen and examined this patient.: Yes I have fully participated in the care of the patient.: Yes I have reviewed all pertinent clinical information, including history, physical exam and plan: Yes Notes (Text): 04/14/18 15:24 Attending note; Patient seen and examined with resident. Patient is alert and awake. has right sided weakness. Patient is a 52-year-old male with no significant PMHx presented to the [facility] ED escorted by his spouse with complaints of weakness, dizziness, slurred speech and difficulty ambulating. Patient did admit to falling this morning as well as yesterday. His symptoms started at 5 PM last night. He did not come to the hospital at that time. 1. Acute CVA; CT head consistent with 9 mm hypodensity in the left thalamic region consistent with subacute infarct. Patient had right-sided weakness and gait instability. MRA head: shows no evidence of occlusion MRI brain: there is a 10mm acute infarct in the left thalamus. Continue aspirin, Plavix and Lipitor. EKG with normal sinus rhythm. Chest x-ray is normal. Carotid Doppler without significant stenosis. Echocardiogram showed normal LV function. PT evaluation, speech and swallow evaluation appreciated. Acute rehabilitation recommended. 2. Hypertension; continue lisinopril. Dosage adjusted. 3. Diabetes; hemoglobin A1c is 11.1. Dietary education given. Started on glipizide low-dose. Started on carb consistent diet/ dysphagia diet. Upon discharge the patient will follow-up with PMD Dr. Montague. Patient will be transferred to [facility] rehabilitation today. Transportation arranged. The diagnosis, follow-up plan discussed with patient and patient's in [facility].
[2018-04-14] MEDS: Insulin Reg-MEDIUM-Coverage SC SCH (08:47)
== END 2018-04-14 11:31 | DRG 14 ==
LOC: ED 17:42 → ERH 18:41 → 2RNO 21:35
PROVIDERS: ADMIT Hospitalist; ATTEND Internal Medicine
DX: I63.9 Cerebral infarction, unspecified (principal); I10 Essential (primary) hypertension; E11.9 Type 2 diabetes mellitus without complications; I25.10 Atherosclerotic heart disease of native coronary artery without angina pectoris; R47.1 Dysarthria and anarthria; R29.810 Facial weakness; G81.91 Hemiplegia, unspecified affecting right dominant side; E78.00 Pure hypercholesterolemia, unspecified; E78.5 Hyperlipidemia, unspecified; R29.706 NIHSS score 6; Z79.84 Long term (current) use of oral hypoglycemic drugs; Z87.891 Personal history of nicotine dependence; Z79.82 Long term (current) use of aspirin; Z82.0 Family history of epilepsy and other diseases of the nervous system; Z82.3 Family history of stroke; Z71.3 Dietary counseling and surveillance

== ENCOUNTER 2018-08-14 10:24 | Outpatient (CLI) | payer SELFPAY | END 2018-08-14 10:25 | disposition home or self-care (01) | LOC: LAB 10:24 ==